=== PATIENT | male | born 1965 | race Caucasian/White ===

== ENCOUNTER 2019-12-13 14:25 | Emergency (ER) ==
--- NOTE | 2019-12-13 15:52 | PSYCHOLOGICAL NOTE ---
Psych Note - Psych Note Date seen by psych provider: 12/13/19 Time seen by psych provider: 15:05 - Interaction with patient at 1505. Psych Note: Attending ED Nurse informed this clinician patient would be a psychiatric consult. She stated he presented for alcohol abuse. She stated he admitted to a history of alcohol abuse with an increase over the last 3 weeks. She stated he appeared depressed and when asked mentioned having gone through a divorce 3 years ago. Observed patient get out of bed and say he was leaving. This clinician explained who she was to get patient to talk and stay in the hospital. He had trouble finding his wallet. Attending Nurse came over and patient located his wallet underneath his bed on the floor. He had lost some change (quarter, dime) and a chicken tender on the bed which was given back to him. When he went to retrieve his wallet from under the bed this clinician saw a cell phone in his pocket (top part was hanging out, told him to be careful not to lose his phone). Observed patient with sweat beads on his forehead. He reported "i was just laying there sleeping, this is taking long, I just want to leave." Inquired if he drank today and he admitted "yes." He reported he drinks beer. He admitted to "severe depression." He denied thoughts of wanting to hurt/harm/kill self. When asked he stated "no." Informed him about [facility] next door as voluntary inpatient, how they could help with alcohol detoxification and depression. He stated "you could walk me over?" He was made aware this clinician would call to make sure there was a bed, if so get it reserved, and depending in his alcohol level yes could walk him fdc where the facility staff would meet him. Then he said he was just going to leave "it is taking too long." When informed he seemed pretty intoxicated and we'd want his alcohol level to d ecrease or have an adult pick him up he stated "I can call a cab." Asked if he had money for a cab and he said "yes." Again tried to encourage him to at least wait for discharge paperwork and this clinician could link him to [facility]. Patient walked headed toward ambulance bay doors, was told that was not the correct way out, to wait for discharge papers at least, and patient proceeded to walk out to the main lobby through the doors. Patient was documented to have left without being seen at 1515. Attending ED Nurse, Charge Nurse, and Attending ED Provider all aware. Clinical Presentation: Alcohol Intoxication with Use Disorder Severe Impression/Plan: This clinician was trying to meet patient and encourage linkage to [facility]. He walked out of the emergency room through the emergency department lobby doors. Dr. Cordero consulted regarding the management and care of patient.
== END 2019-12-13 15:15 | disposition left against medical advice (07) ==
LOC: ER 14:25
DX: F10.129 Alcohol abuse with intoxication, unspecified (principal); F32.9 Major depressive disorder, single episode, unspecified; Z53.20 Procedure and treatment not carried out because of patient's decision for unspecified reasons

== ENCOUNTER 2019-12-31 14:08 | Emergency (ER) | payer SELFPAY ==
[2019-12-31 15:05] LABS: ABSOLUTE LYMPHOCYTES (AUTO) 0.9 10^3/uL (0.5-4.7); ABSOLUTE MONOCYTES (AUTO) 0.5 10^3/uL (0.1-1.4); ABSOLUTE NEUT (AUTO) 3.6 10^3/uL (1.7-8.2); BASOPHILS % (AUTO) 0.3 % (0-2); EOSINOPHILS % (AUTO) 0.1 % (0-6); HEMATOCRIT 47.7 % (37.9-51.0); HEMOGLOBIN 16.9 g/dL (13.5-17.0); LYMPHOCYTES % (AUTO) 17.8 % (13-45); MEAN CORPUSCULAR HEMOGLOBIN 34.3 pg (27.0-33.4); MEAN CORPUSCULAR HGB CONC 35.3 g/dL (32.0-36.0); MEAN CORPUSCULAR VOLUME 97 fl (80-97); MONOCYTES % (AUTO) 9.1 % (3-13); PLATELET COUNT 121 10^3/uL (150-450); RED BLOOD COUNT 4.92 10^6/uL (4.35-5.55); RED CELL DISTRIBUTION WIDTH 15.5 % (11.5-14.0); SEGMENTED NEUTROPHILS % (AUTO) 72.7 % (42-78); TOTAL CELLS COUNTED % (AUTO) 100 %
[2019-12-31 15:29] LABS: ALBUMIN 4.1 g/dL (3.5-5.0); ALKALINE PHOSPHATASE 115 U/L (38-126); ANION GAP 15 (5-19); ASPARTATE AMINO TRANSFERASE 256 U/L (17-59); BILIRUBIN,DIRECT 0.2 mg/dL (0.0-0.4); BILIRUBIN,TOTAL 0.6 mg/dL (0.2-1.3); BLOOD UREA NITROGEN 6 mg/dL (7-20); CALCIUM 8.6 mg/dL (8.4-10.2); CARBON DIOXIDE 21 mmol/L (22-30); CHLORIDE 89 mmol/L (98-107); CREATINE KINASE 885 U/L (55-170); GLUCOSE 144 mg/dL (75-110); POTASSIUM 4.3 mmol/L (3.6-5.0); TOTAL PROTEIN 7.4 g/dL (6.3-8.2)
[2019-12-31] MEDS ORDERED: NICOTINE 21 MG/24 HR PATCH.TD24 TD ONE (15:30)
--- NOTE | 2019-12-31 15:38 | ER Document Report ---
ED General <BEENA CLARK - Last Filed: 12/31/19 18:30> <PAPITO STEWART - Last Filed: 12/31/19 18:51> <TATO FOX - Last Filed: 12/31/19 22:30> - General Chief Complaint: ETOH Abuse Stated Complaint: WEAKNESS Time Seen by Provider: 12/31/19 14:39 Primary Care Provider: [facility] [Outside] - Follow up as needed [facility] [Outside] - Follow up as needed [facility] [Outside] - Follow up as needed - [facility] Notes: Chief complaint: "I am an alcoholic and I need help" History of present illness: 54-year-old male presenting via EMS requesting alcohol detox. 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 He lives alone. He says he has been vomiting today and feels weak and was afraid he would without further attention and this was his reason for calling EMS. He denies pain at this time. He says he feels anxious intermittently. He denies hallucinations. His last consumption of beer was less than an hour prior to calling EMS. He says he is vomited twice today. He denies vomiting blood or coffee-ground material. Patient denies any suicidal/homicidal ideation. He denies any use of illicit drugs. He does smoke in excess of pack cigarettes per day. Patient reports he has been treated in inpatient detox facility twice previously. Patient is on no long-term medications. He has no known allergies. Patient has had prior knee surgery and no other major surgery. Patient has a history of hepatitis C but is never been treated for this. Patient denies any history of service. He is currently living alone. (BEENA CLARK) - Related Data Allergies/Adverse Reactions: No Known Allergies Allergy (Verified 12/13/19 14:53) Past Medical History - General Information source: Patient, Emergency Med Personnel - Social History Smoking Status: Current Every Day Smoker Chew tobacco use (# tins/day): No Frequency of alcohol use: Heavy Drug Abuse: None Occupation: Unemployed manager of construction Lives with: Alone Family History: Reviewed & Not Pertinent Patient has suicidal ideation: No Patient has homicidal ideation: No - Past Medical History Cardiac Medical History: Reports: None Pulmonary Medical History: Reports: None Neurological Medical History: Reports: Hx Seizures Endocrine Medical History: Denies: Hx Diabetes Mellitus Type 1, Hx Diabetes Mellitus Type 2 Renal/ Medical History: Reports: None Malignancy Medical History: Reports None GI Medical History: Reports: Hx Hepatitis - Hepatitis C Past Surgical History: Reports: Hx Orthopedic Surgery - right knee <BEENA CLARK - Last Filed: 12/31/19 18:30> Review of Systems <CLARKBEENA Johnna - Last Filed: 12/31/19 18:30> - Review of Systems Notes: Constitutional: Negative for fever. HENT: Negative for sore throat. Eyes: Negative for visual changes. Cardiovascular: Negative for chest pain. Respiratory: Negative for shortness of breath. Gastrointestinal: As per HPI. Genitourinary: Negative for dysuria. Musculoskeletal: Negative for back pain. Skin: Negative for rash. Neurological: Dull headache. No focal weakness or numbness. 10 point ROS negative except as marked above and in HPI. (BEENA CLARK) Physical Exam <CLARKBEENA Oropeza - Last Filed: 12/31/19 18:30> - Vital signs Vitals: Resp Pulse Ox 11 L 94 12/31/19 14:24 12/31/19 14:24 - Notes Notes: GENERAL: Middle-age male who appears extremely intoxicated with strong odor of alcohol. SKIN: Good turgor no rashes. HEAD: Normocephalic atraumatic. EYES: PERRLA. EOMI. Conjunctivae bilaterally injected. Sclerae clear. EARS: CANALS AND TMS CLEAR. NOSE: CLEAR. MOUTH: Moist mucosa. Fair dentition. No stridor or edema. No drooling. NECK: Supple. No masses or thyromegaly. No adenopathy. Carotids 2+ without bruits. No JVD. BACK: Symmetrical without tenderness. CHEST: Respirations unlabored. Scattered coarse rhonchi bilaterally. HEART: Tachycardic regular rhythm. No murmur gallop or rub. ABDOMEN: Soft nontender without masses, organomegaly or rebound. Bowel sounds normally active. No bruits. GENITALIA: Deferred. EXTREMITIES: No edema. No calf tenderness. Cap refill less than 1.5 seconds. Dorsalis pedis and posterior tibial pulses 3+ and symmetrical. NEUROLOGICAL: GCS 13. Eyes are closed and he will open knees on verbal commands. He is oriented to place and person but not to date. Alert and oriented x3. Unable to stand without assistance. No tremor. Very slurred speech. Cranial nerves II through XII intact. No gross sensory or motor deficit. Moves all 4 extremities symmetrically. PSYCHIATRIC: Appropriate affect. (BEENA CLARK) Course - Laboratory Result Diagrams: 12/31/19 14:25 12/31/19 14:25 <BEENA CLARK - Last Filed: 12/31/19 18:30> - Laboratory Result Diagrams: 12/31/19 14:25 12/31/19 14:25 <PAPITO STEWART - Last Filed: 12/31/19 18:51> - Laboratory Result Diagrams: 12/31/19 14:25 12/31/19 20:27 <TATO FOX - Last Filed: 12/31/19 22:30> - Re-evaluation Re-evalutation: 12/31/19 15:43 Patient is highly intoxicated this time with a blood alcohol 275. I am giving him an IV banana bag. After he myriam clinically we will ask the behavioral medicine team to see him regarding detox. (BEENA CLARK) 12/31/19 21:14 I received this pt at turnover from Dr. Clark. He is here with acute etoh intoxication and low Na and mildly elevated CK. He was receiving a banana bag and then having a recheck of electrolytes and ck. CK is down a bit and Na is up a bit. PT seen. He is mildly tachy and just a bit tremulous. He is interested in going [facility]. I feel clinically he is stable for that. Will recheck Etoh to verify etoh is at acceptable level. (TATO FOX) - Vital Signs Vital signs: Temp Pulse Resp BP Pulse Ox 98.6 F 110 H 20 137/97 H 96 12/31/19 14:32 12/31/19 14:32 12/31/19 17:01 12/31/19 17:01 12/31/19 17:01 - Laboratory Laboratory results interpreted by me: 12/31/19 12/31/19 12/31/19 14:25 14:25 14:25 MCH 34.3 H RDW 15.5 H Plt Count 121 L Sodium 125.0 L Chloride 89 L Carbon Dioxide 21 L BUN 6 L Glucose 144 H Calcium AST 256 H ALT 278 H Creatine Kinase 885 H CK-MB (CK-2) 6.50 H Urine Protein Urine Blood 12/31/19 12/31/19 16:29 20:27 MCH RDW Plt Count Sodium 129.0 L Chloride 95 L Carbon Dioxide BUN 6 L Glucose Calcium 8.1 L AST ALT Creatine Kinase 793 H CK-MB (CK-2) Urine Protein 100 H Urine Blood MODERATE H - EKG Interpretation by Me Additional EKG results interpreted by me: 12/31/19 15:43 Twelve-lead EKG reviewed by me contemporaneously: 1451 hrs. Indication for study: Tachycardia Rhythm: Sinus tachycardia Rate: 97 Intervals: Normal QRS axis: Normal +[address]/T wave changes: None Comparison with prior tracing: None Interpretation: Normal tracing (BEENA CLARK) Discharge <BEENA CLARK - Last Filed: 12/31/19 18:30> <PAPITO STEWART - Last Filed: 12/31/19 18:51> <TATO FOX - Last Filed: 12/31/19 22:30> - Discharge Clinical Impression: Alcohol abuse, Hyponatremia Condition: Fair Disposition: HOME, SELF-CARE Additional Instructions: You have been evaluated by both medical and behavioral health teams for alcohol use, intoxication. You have been deemed appropriate for discharge. While in the emergency department you received the following services/or had access to: Medical screening and assessment, nursing services, dietary services, pharmacological services, one-on-one counseling and/or psychotherapy, [facility], and continuous observation by a patient safety physician. You are not currently involved with any medication management providers. Alcohol Withdrawal Your symptoms are caused by alcohol withdrawal. After a period of frequent drinking, the brain and body are changed by the alcohol. When you quit or reduce your drinking, the nervous system becomes unstable. Withdrawal symptoms can start a few hours after your last drink, but sometimes don't begin until a couple of days later. Symptoms can include shakiness, sweating, insomnia, nausea, vomiting, fearfulness, hallucinations, and seizures. In addition to the acute effects of alcohol withdrawal, we often have to deal with the medical effects of alcoholism. These problems often include dehydration, stomach irritation, intestinal bleeding, low blood sugar, liver disease, and pancreas inflammation. Treatment for alcohol withdrawal includes mild sedatives, vitamins, and fluids. You need to be with someone who can help if symptoms become severe. Many patients can withdraw at home. Admission to the hospital or a detox facility may be necessary if withdrawal symptoms are severe and uncontrollable. Abstaining from alcohol is the only effective long-term treatment. If you start drinking again, you will not be able to control yourself after the first drink. Treatment programs are available. In addition, many alcoholics benefit from Alcoholics Anonymous or other support groups available through your counselor or methodist neck band operator. AL-ANON and ALA-TEEN are support groups for friends and family members of an alcoholic. Go to the emergency room if you develop persistent vomiting, severe abdo rosemarie pain, fever, shortness of breath, hallucinations, uncontrollable tremors, or seizures. Follow Up Care: You are not currently involved in outpatient care or any type of AA meetings. You are recommended to begin attending AA meetings as an additional support for sobriety. You are recommended to follow up with [facility], voluntarily, and get the alcohol use treatment needed. You have been given a community outpatient referral list to include phone numbers for [facility] and [facility] mobile crisis. If you experience worsening or a significant change in your symptoms, notify the physician immediately, utilize mobile crisis, or return to the Emergency Department at any time for re-evaluation. Dr. Cordero was consulted to care management of this patient; attending physicians in agreement with recommendations and disposition. Referrals: [facility] [Outside] - Follow up as needed [facility] [Outside] - Follow up as needed [facility] [Outside] - Follow up as needed
[2019-12-31 15:45] LABS: TROPONIN I < 0.012 ng/mL
--- NOTE | 2019-12-31 15:48 | RADIOLOGY REPORT (SQ) ---
EXAM DESCRIPTION: CHEST SINGLE VIEW IMAGES COMPLETED DATE/TIME: 12/31/2019 3:39 pm REASON FOR STUDY: cough COMPARISON: None. EXAM PARAMETERS: NUMBER OF VIEWS: One view. TECHNIQUE: Single frontal radiographic view of the chest acquired. RADIATION DOSE: NA LIMITATIONS: None. FINDINGS: LUNGS AND PLEURA: No opacities, masses or pneumothorax. No pleural effusion. MEDIASTINUM AND HILAR STRUCTURES: No masses. Contour normal. HEART AND VASCULAR STRUCTURES: Heart normal in size. Normal vasculature. BONES: No acute findings. HARDWARE: None in the chest. OTHER: No other significant finding. IMPRESSION: No focal consolidation or other evidence of acute intrathoracic process. TECHNICAL DOCUMENTATION: JOB ID: [id number] 2010 [employer]- All Rights Reserved Reading location - IP/workstation name: [email or web address]
[2019-12-31 16:56] LABS: APPEARANCE,URINE CLEAR; BILIRUBIN,URINE NEGATIVE (NEGATIVE); COLOR,URINE YELLOW; GLUCOSE, URINE NEGATIVE (NEGATIVE); KETONES,URINE NEGATIVE (NEGATIVE); LEUKOCYTE ESTERASE,URINE NEGATIVE (NEGATIVE); NITRITE,URINE NEGATIVE (NEGATIVE); PROTEIN,URINE 100 mg/dL (NEGATIVE); URINE SPECIFIC GRAVITY 1.005; UROBILINOGEN,URINE NEGATIVE mg/dL (<2.0)
[2019-12-31] MEDS ORDERED: LORAZEPAM INJ 2 MG/1 ML VIAL IV ONE ×2 (17:45→21:19)
[2019-12-31] MEDS ORDERED: NORMAL SALINE 1000 ML 1,000 ML with POTASSIUM CHLORIDE 20 MEQ, MAGNESIUM SULFATE 8 MEQ,... IV SCH ×5 (18:00)
--- NOTE | 2019-12-31 18:09 | PSYCHOLOGICAL NOTE ---
Psych Note - Psych Note Date seen by psych provider: 12/31/19 Time seen by psych provider: 16:30 Psych Note: [id number] Reason for Consult: alcohol abuse; intoxication Patient is a 54 year old male who presented to the [facility] ED today via EMS. Patient was seen earlier in December by behavioral health and left the ED prior to being discharged. Patient today reports drinking 12-18 beers a day and states he has not been eating in the past 5 weeks. He reports when he consumes alcohol, he does not feel like eating food. Patients alcohol level was 275 when he was admitted. Patient lives alone (but has two kids that are involved in his life) and reports he recently lost his job due to being frustrated with changes happening within and states he basically quit. Patient has been experiencing physical symptoms to include vomiting and feeling weak and states he called EMS in fear of dying. Patient reports prior to losing his job, he was sober for 1.5 years. Patient denies suicidal ideation, plan, and intent. He also denies homicidal ideation. Patient reports he went to a [facility] rehab facility in [place] about 2 years ago and has not been to an AA meeting in over 6 months. Patient denies history of inpatient hospitalizations and suicide attempts. Patient gave verbal consent to contact [facility] about a voluntary bed and reports wanting to get help and get sober. Patient was alert and oriented to self, person, place, time and situation. Mood was anxious and intoxicated with congruent affect. He denied current suicidal ideation, plan, and intent. He also denied homicidal ideation. Patient did not appear to be responding to internal stimuli as evidenced by fair eye contact and answering questions appropriately when addressed. Thought processes are linear and organized. Conversational speech was within normal limits for rate, tone and prosody. Intellectual abilities are estimated to be average. Insight and judgment are poor as evidenced by drinking excessive amounts of alcohol and not eating adequately, but impulse control was fair evidenced by calling EMS in order to get the help he needs. Patient demonstrated future forward goal oriented thinking as he mentions wanting to detox and get sober. Clinical Presentation: alcohol use, intoxicated IVC Criteria per [place] GS 122C Dangerous to others Within the relevant past the individual No has inflicted or attempted to inflict or threatened to inflict serious bodily harm on another AND No that there is a reasonable probability that this conduct will be repeated. OR No has acted in such a way as to create a substantial risk of serious bodily harm to another AND No that there is a reasonable probability that this conduct will be repeated. OR No has engaged in extreme destruction of property AND NO that there is a reasonable probability that this conduct will be repeated. Previous episodes of dangerousness to others, when applicable, may be considered when determining reasonable probability of future dangerous conduct. Clear, cogent, and convincing evidence that an individual has committed a homicide in the relevant past is prima facie evidence of dangerousness to others. Dangerous to self Within the relevant past the individual has done any of the following: acted in such a way as to show ALL of the following: No The individual would be unable without care, supervision, and the continued assistance of others not otherwise available, to exercise self- control, judgment, and discretion in the conduct of the individual's daily responsibilities and social relations or to satisfy the individual's need for nourishment, personal or medical care, assisted, or self-protection and safety. AND No There is a reasonable probability of the individual suffering serious physical debilitation within the near future unless adequate treatment is given. A showing of behavior that is grossly irrational, of actions that the individual is unable to control, of behavior that is grossly inappropriate to the situation, or of other evidence of severely impaired insight and judgment shall create a prima facie inference that the individual is unable to care for himself or herself. OR No has attempted suicide or threatened suicide AND No that there is a reasonable probability of suicide unless adequate treatment is given OR No has mutilated himself or herself or attempted to mutilate himself or herself AND No that there is a reasonable probability of serious self-mutilation unless adequate treatment is given. NOTE: Previous episodes of dangerousness to self, when applicable, may be considered when determining reasonable probability of physical debilitation, suicide, or self-mutilation. Medication recommendations per [facility] contracted psychiatrist, Dr. William CANDELAIRO, are as follows: Impression\plan: Patient is cleared from acute psychiatric services. [facility] was contacted on behalf of patient, and at this time a male voluntary bed is available. Patient was provided the contact information for [facility] and was inf ormed he needs to make the phone call himself as a voluntary admission. Patient was woken up and provided the information needed and information was left on his table next to his cell phone. Nurse was also made aware of him calling on his own behalf to schedule a bed hold and will assist with making phone call if needed. Patient was admitted to the ED for physical concerns regarding his alcohol use. He denies suicidal ideation, plan, and intent. Patient has no psychiatric history, but does have a history of alcoholism. He was sober for 1.5 years and after losing/quitting his job, started drinking beer heavily. He came into the ED due to these side effects of drinking heavily and in fear of dying. He does not meet criteria for IVC. Patient has been given referrals for detox facilities in the area and the phone numbers to mobile crisis for [facility] and [facility]. [facility] has been contacted and a voluntary is available (at this time) however patient has to request hold on his own. He is aware of this. Patient is recommended to get involved again with AA and follow up with outpatient provider to assist with sobriety. He is recommended to stop drinking as most of his physical complaints came about after his excessive drinking this time. Dr. Cordero was consulted to care management of this patient; attending physicians in agreement with recommendations and disposition. Doctor's Discharge - Discharge Clinical Impression: Alcohol abuse, Hyponatremia Condition: Fair Disposition: HOME, SELF-CARE Additional Instructions: You have been evaluated by both medical and behavioral health teams for alcohol use, intoxication. You have been deemed appropriate for discharge. While in the emergency department you received the following services/or had access to: Medical screening and assessment, nursing services, dietary services, pharmacological services, one-on-one counseling and/or psychotherapy, environmental services, and continuous observation by a patient analysis or research safety inspector. You are not currently involved with any medication management providers. Alcohol Withdrawal Your symptoms are caused by alcohol withdrawal. After a period of frequent drinking, the brain and body are changed by the alcohol. When you quit or reduce your drinking, the nervous system becomes unstable. Withdrawal symptoms can start a few hours after your last drink, but sometimes don't begin until a couple of days later. Symptoms can include shakiness, sweating, insomnia, nausea, vomiting, fearfulness, hallucinations, and seizures. In addition to the acute effects of alcohol withdrawal, we often have to deal with the medical effects of alcoholism. These problems often include dehydration, stomach irritation, intestinal bleeding, low blood sugar, liver disease, and pancreas inflammation. Treatment for alcohol withdrawal includes mild sedatives, vitamins, and fluids. You need to be with someone who can help if symptoms become severe. Many patients can withdraw at home. Admission to the hospital or a detox facility may be necessary if withdrawal symptoms are severe and uncontrollable. Abstaining from alcohol is the only effective long-term treatment. If you start drinking again, you will not be able to control yourself after the first drink. Treatment programs are available. In addition, many alcoholics benefit from Alcoholics Anonymous or other support groups available through your counselor or mu-ism web applications programmer. AL-ANON and ALA-TEEN are support groups for friends and family members of an alcoholic. Go to the emergency room if you develop persistent vomiting, severe abdominal pain, fever, shortness of breath, hallucinations, uncontrollable tremors, or seizures. Follow Up Care: You are not currently involved in outpatient care or any type of AA meetings. You are recommended to begin attending AA meetings as an additional support for sobriety. You are recommended to follow up with [facility], voluntarily, and get the alcohol use treatment needed. You have been given [facility] to include phone numbers for [facility] and [facility] mobile crisis. If you experience worsening or a significant change in your symptoms, notify the physician immediately, utilize mobile crisis, or return to the Emergency Department at any time for re-evaluation. Dr. Cordero was consulted to care management of this patient; attending physicians in agreement with recommendations and disposition. Referrals: [facility] [Outside] - Follow up as needed [facility] [Outside] - Follow up as needed [facility] [Outside] - Follow up as needed
[2019-12-31 18:44] LABS: URINE AMPHETAMINES SCREEN NEGATIVE; URINE BARBITURATES SCREEN NEGATIVE; URINE BENZODIAZEPINES SCREEN NEGATIVE; URINE COCAINE SCREEN NEGATIVE; URINE MARIJUANA (THC) SCREEN NEGATIVE; URINE METHADONE SCREEN NEGATIVE; URINE PHENCYCLIDINE SCREEN NEGATIVE
--- NOTE | 2019-12-31 19:42 | EKG REPORT ---
SEVERITY:- BORDERLINE ECG - SINUS RHYTHM PROBABLE LEFT ATRIAL ABNORMALITY : Confirmed by: Theo Duggan MD 31-Dec-2019 19:41:22
[2019-12-31 20:53] LABS: ANION GAP 11 (5-19); BLOOD UREA NITROGEN 6 mg/dL (7-20); CALCIUM 8.1 mg/dL (8.4-10.2); CARBON DIOXIDE 23 mmol/L (22-30); CHLORIDE 95 mmol/L (98-107); CREATINE KINASE 793 U/L (55-170); GLUCOSE 83 mg/dL (75-110); POTASSIUM 4.5 mmol/L (3.6-5.0)
[2020-01-01 00:03] VITALS: BP 139/89
--- NOTE | 2020-01-02 10:42 | PSYCHOLOGICAL NOTE ---
Psych Note - Psych Note Date seen by psych provider: 01/02/20 Psych Note: Patient was seen 12/31/2019 (please seen note in previous vist) and was assisted with voluntary placement at [facility]; unfortunately, the patient presented again to [facility] less than 2 hours later after discharge due to [facility] being unable to assist the patient due to sodium levels. At this time, the patient appears to need medical assistance with detox (as he has been admitted medically), this is not something [facility] can assist with. Once the patient is detoxed, he is recommended to follow through with original recommendations for post detox and obtain substance abuse treatment (ie rehab, intense outpatient or outpatient services).
== END 2019-12-31 23:57 | disposition home or self-care (01) ==
LOC: ER 14:08
DX: F10.10 Alcohol abuse, uncomplicated (principal); E87.1 Hypo-osmolality and hyponatremia; R00.0 Tachycardia, unspecified; R74.01 Elevation of levels of liver transaminase levels; R53.1 Weakness; R11.10 Vomiting, unspecified; F41.9 Anxiety disorder, unspecified; R51.9 Headache, unspecified; F17.210 Nicotine dependence, cigarettes, uncomplicated
CPT/HCPCS: 93005; 96376; 99285; 96375; 96365; 96366; 36415; 82553; 80307 ×2; 82550; 85025; 80053; 81001; 84484; 71045; 93010; J3475; J2060; J3480; J3411; J7030; J3490

== ENCOUNTER 2020-01-01 01:17 | Inpatient (IN) | payer SELFPAY ==
[2020-01-01] MEDS ORDERED: LORAZEPAM INJ 2 MG/1 ML VIAL IV ONE (02:47)
--- NOTE | 2020-01-01 02:51 | ER Document Report ---
ED General - General Chief Complaint: Alcohol Withdrawl Stated Complaint: ETOH Time Seen by Provider: 01/01/20 02:43 Notes: Patient is a 54-year-old male that comes emergency department for chief complaint of alcohol withdrawals. Patient was here at this facility during the afternoon and evening, had medical clearance for detox, and he was discharged to [facility], however patient started having significant withdrawal symptoms and was sent back over to the emergency department. Patient is diaphoretic, tremulous. Patient denies having history of seizures with alcohol withdrawals. Patient states he drinks 24 beers a day. Patient denies vomiting, fever, chest pain. Patient states he has had a cough ever since he stopped smoking recently. He states he has had "seizure from a prescription medication but nothing since I stopped it". He could not tolerate the medication. He denies medical history otherwise. - Related Data Allergies/Adverse Reactions: No Known Allergies Allergy (Verified 12/13/19 14:53) Past Medical History - General Information source: Patient - Social History Smoking Status: Current Every Day Smoker Frequency of alcohol use: Heavy Drug Abuse: None Lives with: Family Family History: Reviewed & Not Pertinent Patient has homicidal ideation: No Neurological Medical History: Reports: Hx Seizures Endocrine Medical History: Denies: Hx Diabetes Mellitus Type 1, Hx Diabetes Clari litus Type 2 GI Medical History: Reports: Hx Hepatitis - Hepatitis C Infectious Medical History: Reports: Hx Hepatitis - Hepatitis C Past Surgical History: Reports: Hx Orthopedic Surgery - right knee Review of Systems - Review of Systems Constitutional: See HPI EENT: No symptoms reported Cardiovascular: No symptoms reported Respiratory: No symptoms reported Gastrointestinal: No symptoms reported Genitourinary: No symptoms reported Male Genitourinary: No symptoms reported Musculoskeletal: No symptoms reported Skin: No symptoms reported Hematologic/Lymphatic: No symptoms reported Neurological/Psychological: See HPI Physical Exam - Vital signs Vitals: Temp Pulse Resp BP Pulse Ox 98.0 F 123 H 22 H 128/86 H 96 01/01/20 01:27 01/01/20 01:27 01/01/20 01:27 01/01/20 01:27 01/01/20 01:27 - Notes Notes: GENERAL: Patient is alert and interactive however he is ill-appearing, flushed, diaphoretic, tremulous HEAD: Normocephalic, atraumatic. EYES: Pupils equal, round, and reactive to light. Extraocular movements intact. ENT: Oral mucosa moist, tongue midline. Oropharynx unremarkable. Airway patent. NECK: Full range of motion. Supple. Trachea midline. No lymphadenopathy. LUNGS: Decreased breath sounds bilaterally with a few scattered wheezes but no rales or rhonchi. No respiratory distress. Nontender chest wall. HEART: Tachycardia, normal rhythm, no murmur ABDOMEN: Soft, non-tender. Non-distended. EXTREMITIES: Moves all 4 extremities spontaneously. No edema, normal radial and dorsalis pedis pulses bilaterally. No cyanosis. BACK: no cervical, thoracic, lumbar midline tenderness. No saddle anesthesia, normal distal neurovascular exam. Moves all extremities in full range of motion. NEUROLOGICAL: Alert and oriented x3. Normal speech. Cranial nerves II through XII grossly intact. Strength 5/5 in all extremities. PSYCH: Slightly restless but cooperative SKIN: Diaphoretic with obvious beads of sweat on the forehead Course - Re-evaluation Re-evalutation: 01/01/20 02:52 On my evaluation patient is diaphoretic, very tremulous, tachycardic in the 120s. 01/01/20 03:32 Patient reevaluated. Heart rate is 103, patient sleeping, maintaining his airway, significantly improved after the 2 mg of Ativan IV. 01/01/20 04:50 Laboratory work-up without significant change from prior except alcohol level is essentially 0 now. Patient initially had some improvement with Ativan but this was very brief and patient quickly became diaphoretic, tremulous, and agitated. Patient will be given Valium. Because of his repeated need for IV benzodiazepines patient will require admission for alcohol withdrawal. 01/01/[address] Lopez, patient accepted to [facility] full admission. Patient states agreement with plan. - Vital Signs Vital signs: Temp Pulse Resp BP Pulse Ox 99.6 F 123 H 24 H 125/85 97 01/01/20 07:00 01/01/20 01:27 01/01/20 07:00 01/01/20 07:00 01/01/20 07:00 - Laboratory Result Diagrams: 01/01/20 02:45 01/01/20 02:45 Laboratory results interpreted by me: 01/01/20 01/01/20 02:45 02:45 MCV 98 H MCH 33.5 H RDW 15.8 H Plt Count 138 L Lymph % (Auto) 12.5 L Seg Neutrophils % 78.5 H Sodium 126.6 L Chloride 94 L Carbon Dioxide 21 L Glucose 214 H AST 186 H ALT 236 H Discharge - Discharge Clinical Impression: Diaphoresis, Tachycardia Alcohol withdrawal Qualifiers: Complication of substance-induced condition: with unspecified complication Qualified Code(s): F10.239 - Alcohol dependence with withdrawal, unspecified Condition: Fair Disposition: ADMITTED INPATIENT Admitting Provider: Jessica (Hospitalist) Unit Admitted: [facility]
[2020-01-01 04:28] LABS: ABSOLUTE LYMPHOCYTES (AUTO) 0.8 10^3/uL (0.5-4.7); ABSOLUTE MONOCYTES (AUTO) 0.6 10^3/uL (0.1-1.4); BASOPHILS % (AUTO) 0.2 % (0-2); EOSINOPHILS % (AUTO) 0.1 % (0-6); HEMATOCRIT 45.7 % (37.9-51.0); HEMOGLOBIN 15.6 g/dL (13.5-17.0); LYMPHOCYTES % (AUTO) 12.5 % (13-45); MEAN CORPUSCULAR HEMOGLOBIN 33.5 pg (27.0-33.4); MEAN CORPUSCULAR HGB CONC 34.1 g/dL (32.0-36.0); MEAN CORPUSCULAR VOLUME 98 fl (80-97); MONOCYTES % (AUTO) 8.7 % (3-13); PLATELET COUNT 138 10^3/uL (150-450); RED BLOOD COUNT 4.65 10^6/uL (4.35-5.55); RED CELL DISTRIBUTION WIDTH 15.8 % (11.5-14.0); SEGMENTED NEUTROPHILS % (AUTO) 78.5 % (42-78); TOTAL CELLS COUNTED % (AUTO) 100 %; WHITE BLOOD COUNT 6.4 10^3/uL (4.0-10.5)
[2020-01-01 04:37] LABS: ALCOHOL 12 mg/dL (NONE DETECTED); ALKALINE PHOSPHATASE 104 U/L (38-126); ANION GAP 12 (5-19); ASPARTATE AMINO TRANSFERASE 186 U/L (17-59); BILIRUBIN,DIRECT 0.4 mg/dL (0.0-0.4); BLOOD UREA NITROGEN 9 mg/dL (7-20); CALCIUM 8.6 mg/dL (8.4-10.2); CARBON DIOXIDE 21 mmol/L (22-30); CHLORIDE 94 mmol/L (98-107); GLUCOSE 214 mg/dL (75-110); POTASSIUM 4.4 mmol/L (3.6-5.0); TOTAL PROTEIN 7.1 g/dL (6.3-8.2)
[2020-01-01] MEDS ORDERED: DIAZEPAM INJ 10 MG/2 ML DISP.SYRIN IV ONE ×2 (04:50→05:54)
[2020-01-01] MEDS ORDERED: THIAMINE HCL 100 MG in NORMAL SALINE 50 ML IV ONE (04:51)
[2020-01-01] MEDS ORDERED: THIAMINE HCL INJ 200 MG/2 ML VIAL ONE ×3 (06:06→19:02)
[2020-01-01] MEDS ORDERED: ONDANSETRON HCL INJ/PF 4 MG/2 ML SDV IV PRN (06:28)
[2020-01-01] MEDS ORDERED: MAG HYDROX/AL HYDROX/SIMETH SUSP 30 ML UDCUP PO PRN (06:28)
[2020-01-01] MEDS ORDERED: ALBUTEROL SULFATE 0.083% NEB 2.5 MG/3 ML AMPUL NEB PRN (06:28)
[2020-01-01] MEDS ORDERED: NORMAL SALINE 1000 ML 1,000 ML IV ONE (06:40)
[2020-01-01] MEDS ORDERED: DEXTROSE 40% GEL 15 GM TUBE PO PRN ×2 (06:45)
[2020-01-01] MEDS ORDERED: GLUCAGON,HUMAN RECOMB 1 MG INJ IM PRN (06:45)
[2020-01-01] MEDS ORDERED: DEXTROSE 50%-WATER 25 GM/50 ML DISP.SYRIN IV PRN ×2 (06:45)
--- NOTE | 2020-01-01 06:51 | PDOC H&P ---
History of Present Illness Admission Date/PCP: 01/01/20 05:57 Patient complains of: Detox History of Present Illness: ALINA DORSEY is a 54 year old male with history of alcohol abuse, hepatitis C infection, who presents to the hospital for alcohol detox. He states he wants to turn his life around. He is currently experiencing symptoms of alcohol withdrawal including tremulousness, nausea, diaphoresis. He states he was sent to a detox center and he was turned back because he was too far into his withdrawal. He drinks 24 beers and some liquor every day. Last alcohol consumption was yesterday. Denies fever or chills at this time. Denies any sick exposures. In the ER, his CIWA was reported to be 14. He currently denies any hallucinations. He has had seizure in the past but says it was not from alcohol withdrawal. Denies having any other medical conditions besides hepatitis C and alcohol use. Past Medical History Neurological Medical History: Reports: Seizures Endocrine Medical History: Denies: Diabetes Mellitus Type 1, Diabetes Mellitus Type 2 GI Medical History: Reports: Hepatitis - Hepatitis C Past Surgical History Past Surgical History: Reports: Orthopedic Surgery - right knee Social History Smoking Status: Current Every Day Smoker Frequency of Alcohol Use: Heavy Hx Recreational Drug Use: No - Advance Directive Resuscitation Status: Full Code Family History Family History: None Parental Family History Reviewed: Yes Children Family History Reviewed: Yes Sibling(s) Family History Reviewed.: Yes Medication/Allergy Allergies/Adverse Reactions: No Known Allergies Allergy (Verified 12/13/19 14:53) Review of Systems Constitutional: PRESENT: fatigue. ABSENT: chills, fever(s) Eyes: ABSENT: visual disturbances Ears: ABSENT: hearing changes Nose, Mouth, and Throat: PRESENT: headache(s) Cardiovascular: ABSENT: chest pain Respiratory: ABSENT: cough, dyspnea Gastrointestinal: PRESENT: abdominal pain, nausea, vomiting Genitourinary: ABSENT: dysuria Musculoskeletal: ABSENT: back pain Integumentary: PRESENT: diaphoresis Neurological: PRESENT: lack of coordination. ABSENT: dizziness Psychiatric: PRESENT: anxiety. ABSENT: hallucinations Endocrine: PRESENT: flushing. ABSENT: polyuria Hematologic/Lymphatic: ABSENT: easy bleeding Physical Exam Vital Signs: Temp Pulse Resp BP Pulse Ox 99.5 F 123 H 25 H 127/89 H 95 01/01/20 02:44 01/01/20 01:27 01/01/20 05:01 01/01/20 05:00 01/01/20 05:01 Intake & Output 12/30/19 12/31/19 01/01/20 06:59 06:59 06:59 Weight 95.4 kg General appearance: PRESENT: no acute distress, cooperative Head exam: PRESENT: normocephalic Eye exam: PRESENT: EOMI, nystagmus, PERRLA Neck exam: ABSENT: JVD Respiratory exam: PRESENT: symmetrical, unlabored, wheezes. ABSENT: crackles, rales, tachypnea Cardiovascular exam: PRESENT: +S1, +S2, tachycardia. ABSENT: irregular rhythm GI/Abdominal exam: PRESENT: soft. ABSENT: distended, firm, guarding, rebound, rigid, tenderness Extremities exam: ABSENT: calf tenderness Neurological exam: PRESENT: alert, awake, oriented to person, oriented to place, oriented to time, oriented to situation, ataxia. ABSENT: motor sensory deficit, aphasic Psychiatric exam: PRESENT: anxious, unusual affect. ABSENT: agitated Focused psych exam: PRESENT: restlessness. ABSENT: catatonic, delusional, internal stimuli, pressured speech Skin exam: ABSENT: jaundice Results Laboratory Results: 01/01/20 02:45 01/01/20 02:45 01/01/20 01/01/20 02:45 02:45 WBC 6.4 RBC 4.65 Hgb 15.6 Hct 45.7 MCV 98 H MCH 33.5 H MCHC 34.1 RDW 15.8 H Plt Count 138 L Seg Neutrophils % 78.5 H Sodium 126.6 L Potassium 4.4 Chloride 94 L Carbon Dioxide 21 L Anion Gap 12 BUN 9 Creatinine 0.75 Est GFR ( Amer) > 60 Glucose 214 H Calcium 8.6 Magnesium 2.1 Total Bilirubin 1.0 AST 186 H Alkaline Phosphatase 104 Total Protein 7.1 Albumin 4.0 Lipase 297.6 Assessment and Plan - Diagnosis (1) Alcohol dependence with withdrawal Qualifiers: Complication of substance-induced condition: with unspecified complication Qualified Code(s): F10.239 - Alcohol dependence with withdrawal, unspecified Is this a current diagnosis for this admission?: Yes Plan: Currently in significant withdrawal. CIWA protocol Ativan as needed Standing Valium. Psychiatric consultation Check UDS Antiemetics as needed GI prophylaxis (2) Wernickes encephalopathy Is this a current diagnosis for this admission?: Yes Plan: Currently ataxic with significant nystagmus We will start patient on high-dose IV thiamine twice a day (3) Hyponatremia Is this a current diagnosis for this admission?: Yes Plan: Sodium is 126. Likely secondary to poor caloric intake from alcoholism. Check urine sodium, osmolarity and serum osmolarity Normal saline infusion Repeat basic metabolic panel. Goal correction of 6-8 meq per 24-hour (4) Hyperglycemia Is this a current diagnosis for this admission?: Yes Plan: Blood sugar in the 200s. Denies history of diabetes. We will check an A1c and keep Accu-Cheks and sliding scale (5) Thrombocytopenia Is this a current diagnosis for this admission?: Yes Plan: Likely secondary to hepatitis C infection. Monitor. (6) History of hepatitis C Is this a current diagnosis for this admission?: Yes Plan: Follow-up with infectious disease or highway maintenance crew worker as outpatient. - Time Time Spent with patient: 35 or more minutes Anticipated Discharge Disposition: Psych Hospital/Unit Anticipated Discharge Timeframe: Unknown
[2020-01-01] MEDS: IPRATROPIUM/ALBUTEROL 0.5-2.5 MG/3 ML AMPUL NEB SCH ×3 (09:26→23:51)
[2020-01-01] MEDS: LORAZEPAM INJ 2 MG/1 ML VIAL IV PRN ×3 (10:07→23:23)
[2020-01-01] MEDS: THIAMINE HCL 500 MG in NORMAL SALINE 250 ML IV SCH ×2 (10:20→19:26)
[2020-01-01] MEDS: FAMOTIDINE INJ/PF 20 MG/2 ML SDV IV SCH ×2 (10:20→21:34)
[2020-01-01 11:05] LABS: ANION GAP 9 (5-19); BLOOD UREA NITROGEN 12 mg/dL (7-20); CALCIUM 8.3 mg/dL (8.4-10.2); CARBON DIOXIDE 22 mmol/L (22-30); CHLORIDE 98 mmol/L (98-107); GLUCOSE 111 mg/dL (75-110); POTASSIUM 4.1 mmol/L (3.6-5.0)
[2020-01-01] MEDS: INSULIN LISPRO 100 UNIT/ML 3 ML VIAL SUBCUT SCH ×4 (11:10→21:51)
[2020-01-01] MEDS: ENOXAPARIN SODIUM INJ 40 MG/0.4 ML DISP.SYRIN SUBCUT SCH (11:11)
[2020-01-01] MEDS: DIAZEPAM INJ 10 MG/2 ML DISP.SYRIN IV SCH ×2 (13:27→21:34)
[2020-01-01] MEDS: FOLIC ACID 1 MG TABLET PO SCH (16:03)
[2020-01-01] MEDS: NORMAL SALINE 1000 ML 1,000 ML IV PRN (21:35)
[2020-01-02] MEDS: LORAZEPAM INJ 2 MG/1 ML VIAL IV PRN ×4 (02:10→22:24)
[2020-01-02] MEDS: DIAZEPAM INJ 10 MG/2 ML DISP.SYRIN IV SCH ×3 (05:50→21:41)
[2020-01-02 07:16] LABS: ABSOLUTE EOSINOPHILS # (AUTO) 0.1 10^3/uL (0.0-0.6); ABSOLUTE LYMPHOCYTES (AUTO) 1.1 10^3/uL (0.5-4.7); ABSOLUTE MONOCYTES (AUTO) 0.6 10^3/uL (0.1-1.4); ABSOLUTE NEUT (AUTO) 3.4 10^3/uL (1.7-8.2); BASOPHILS % (AUTO) 0.3 % (0-2); EOSINOPHILS % (AUTO) 1.2 % (0-6); HEMATOCRIT 40.9 % (37.9-51.0); HEMOGLOBIN 14.1 g/dL (13.5-17.0); LYMPHOCYTES % (AUTO) 21.1 % (13-45); MEAN CORPUSCULAR HEMOGLOBIN 34.1 pg (27.0-33.4); MEAN CORPUSCULAR HGB CONC 34.4 g/dL (32.0-36.0); MEAN CORPUSCULAR VOLUME 99 fl (80-97); MONOCYTES % (AUTO) 11.1 % (3-13); PLATELET COUNT 104 10^3/uL (150-450); RED BLOOD COUNT 4.13 10^6/uL (4.35-5.55); SEGMENTED NEUTROPHILS % (AUTO) 66.3 % (42-78); TOTAL CELLS COUNTED % (AUTO) 100 %; WHITE BLOOD COUNT 5.2 10^3/uL (4.0-10.5)
[2020-01-02 07:38] LABS: ALBUMIN 3.3 g/dL (3.5-5.0); ALKALINE PHOSPHATASE 93 U/L (38-126); ANION GAP 6 (5-19); ASPARTATE AMINO TRANSFERASE 104 U/L (17-59); BILIRUBIN,DIRECT 0.2 mg/dL (0.0-0.4); BILIRUBIN,TOTAL 0.9 mg/dL (0.2-1.3); BLOOD UREA NITROGEN 13 mg/dL (7-20); CALCIUM 8.4 mg/dL (8.4-10.2); CARBON DIOXIDE 22 mmol/L (22-30); CHLORIDE 104 mmol/L (98-107); GLUCOSE 80 mg/dL (75-110); TOTAL PROTEIN 6.2 g/dL (6.3-8.2)
[2020-01-02] MEDS ORDERED: INFLUENZA QUAD (6MOS+) 2020-21 VAC 0.5 ML SYR IM ONE (08:00)
[2020-01-02] MEDS: INSULIN LISPRO 100 UNIT/ML 3 ML VIAL SUBCUT SCH ×4 (08:06→21:41)
[2020-01-02] MEDS: NORMAL SALINE 1000 ML 1,000 ML IV PRN ×2 (08:06→22:25)
[2020-01-02] MEDS: IPRATROPIUM/ALBUTEROL 0.5-2.5 MG/3 ML AMPUL NEB SCH ×2 (08:39→15:55)
[2020-01-02] MEDS: FOLIC ACID 1 MG TABLET PO SCH (09:16)
[2020-01-02] MEDS: FAMOTIDINE INJ/PF 20 MG/2 ML SDV IV SCH ×2 (09:17→21:41)
[2020-01-02] MEDS: ENOXAPARIN SODIUM INJ 40 MG/0.4 ML DISP.SYRIN SUBCUT SCH (09:17)
[2020-01-02] MEDS: THIAMINE HCL 500 MG in NORMAL SALINE 250 ML IV SCH ×2 (10:28→17:25)
--- NOTE | 2020-01-02 12:05 | PDOC PROGRESS REPORT ---
Subjective Date:: 01/02/20 Subjective:: ALINA DORSEY is a 54 year old male with history of alcohol abuse, hepatitis C infection, who presents to the hospital for alcohol detox. He states he wants to turn his life around. He is currently experiencing symptoms of alcohol withdrawal including tremulousness, nausea, diaphoresis. He states he was sent to a detox center and he was turned back because he was too far into his withdrawal. He drinks 24 beers and some liquor every day. Last alcohol consumption was yesterday. Denies fever or chills at this time. Denies any sick exposures. In the ER, his CIWA was reported to be 14. He currently denies any hallucinations. He has had seizure in the past but says it was not from alcohol withdrawal. Denies having any other medical conditions besides hepatitis C and alcohol use. 01/02/2020. Overnight patient is stating that he was very anxious and comfortable, this morning he is a still complaining of anxiety, denies any auditory or visual hallucinations, appears very tremulous and anxious. Denies any fever, chills, nausea, vomiting. Reason For Visit: ALCOHOL WITHDRAWAL,DIAPHORESIS,TACHYCARDIA Physical Exam Vital Signs: Temp Pulse Resp BP Pulse Ox 98.1 F 91 16 140/86 H 93 01/02/20 08:13 01/02/20 08:39 01/02/20 08:39 01/02/20 07:42 01/02/20 08:39 Intake & Output 01/01/20 01/02/20 01/03/20 06:59 06:59 06:59 Intake Total 1660 1255 Output Total 800 Balance 860 1255 Weight 95.4 kg 94.4 kg General appearance: PRESENT: mild distress, obese, other - Anxious, tremulous, diaphoretic Head exam: PRESENT: atraumatic, normocephalic Respiratory exam: PRESENT: clear to auscultation andrew. ABSENT: rales, rhonchi, wheezes Cardiovascular exam: PRESENT: RRR. ABSENT: diastolic murmur, rubs, systolic murmur Neurological exam: PRESENT: alert, awake, oriented to person, oriented to place, CN II-XII grossly intact. ABSENT: motor sensory deficit Psychiatric exam: PRESENT: anxious Results Laboratory Results: 01/02/20 06:37 01/02/20 06:37 01/02/20 01/02/20 06:37 06:37 WBC 5.2 RBC 4.13 L Hgb 14.1 Hct 40.9 MCV 99 H MCH 34.1 H MCHC 34.4 RDW 16.0 H Plt Count 104 L Seg Neutrophils % 66.3 Sodium 132.4 L Potassium 4.0 Chloride 104 Carbon Dioxide 22 Anion Gap 6 BUN 13 Creatinine 0.73 Est GFR ( Amer) > 60 Glucose 80 Calcium 8.4 Phosphorus 4.0 Magnesium 2.2 Total Bilirubin 0.9 AST 104 H Alkaline Phosphatase 93 Total Protein 6.2 L Albumin 3.3 L Assessment and Plan - Diagnosis (1) Alcohol dependence with withdrawal Qualifiers: Complication of substance-induced condition: with unspecified complication Qualified Code(s): F10.239 - Alcohol dependence with withdrawal, unspecified Is this a current diagnosis for this admission?: Yes Plan: Currently in significant withdrawal. CIWA protocol Ativan as needed Standing Valium. Psychiatric consultation Check UDS Antiemetics as needed GI prophylaxis (2) History of hepatitis C Is this a current diagnosis for this admission?: Yes Plan: Follow-up with infectious disease or dye worker as outpatient. (3) Hyperglycemia Is this a current diagnosis for this admission?: Yes Plan: Blood sugar in the 200s. Denies history of diabetes. We will check an A1c and keep Accu-Cheks and sliding scale (4) Thrombocytopenia Is this a current diagnosis for this admission?: Yes Plan: Likely secondary to hepatitis C infection. Monitor. (5) Wernickes encephalopathy Is this a current diagnosis for this admission?: Yes Plan: Currently ataxic with significant nystagmus We will start patient on high-dose IV thiamine twice a day (6) Hyponatremia Is this a current diagnosis for this admission?: Yes Plan: Resolved. - Time Time Spent with patient: 25-34 minutes Medications reviewed and adjusted accordingly: Yes Anticipated Discharge Disposition: Home with Home Health Anticipated Discharge Timeframe: within 72 hours
[2020-01-03] MEDS: LORAZEPAM INJ 2 MG/1 ML VIAL IV PRN ×10 (00:05→22:34)
[2020-01-03] MEDS: IPRATROPIUM/ALBUTEROL 0.5-2.5 MG/3 ML AMPUL NEB SCH ×2 (00:27→09:11)
[2020-01-03 01:06] LABS: OSMOLALITY,URINE 659 mOsm/kg (300-900)
[2020-01-03 01:07] LABS: URINE AMPHETAMINES SCREEN NEGATIVE; URINE BARBITURATES SCREEN NEGATIVE; URINE COCAINE SCREEN NEGATIVE; URINE MARIJUANA (THC) SCREEN NEGATIVE; URINE METHADONE SCREEN NEGATIVE; URINE PHENCYCLIDINE SCREEN NEGATIVE
[2020-01-03] MEDS: NICOTINE 21 MG/24 HR PATCH.TD24 TD SCH ×2 (01:08→21:28)
[2020-01-03 01:09] LABS: URINE BENZODIAZEPINES SCREEN UNCONFIRMED POSITIVE
[2020-01-03 01:20] LABS: URINE SODIUM 222 mmol/L (30-90)
[2020-01-03] MEDS: DIAZEPAM INJ 10 MG/2 ML DISP.SYRIN IV SCH ×3 (05:04→21:28)
[2020-01-03] MEDS: NORMAL SALINE 1000 ML 1,000 ML IV PRN ×2 (05:06→16:27)
[2020-01-03 06:08] LABS: HEMATOCRIT 39.4 % (37.9-51.0); HEMOGLOBIN 13.7 g/dL (13.5-17.0); MEAN CORPUSCULAR HEMOGLOBIN 34.4 pg (27.0-33.4); MEAN CORPUSCULAR HGB CONC 34.8 g/dL (32.0-36.0); MEAN CORPUSCULAR VOLUME 99 fl (80-97); PLATELET COUNT 116 10^3/uL (150-450); RED BLOOD COUNT 3.98 10^6/uL (4.35-5.55); RED CELL DISTRIBUTION WIDTH 15.6 % (11.5-14.0); WHITE BLOOD COUNT 6.3 10^3/uL (4.0-10.5)
[2020-01-03 06:26] LABS: ALBUMIN 3.3 g/dL (3.5-5.0); ALKALINE PHOSPHATASE 96 U/L (38-126); ANION GAP 10 (5-19); ASPARTATE AMINO TRANSFERASE 93 U/L (17-59); BILIRUBIN,DIRECT 0.3 mg/dL (0.0-0.4); BLOOD UREA NITROGEN 11 mg/dL (7-20); CALCIUM 8.4 mg/dL (8.4-10.2); CARBON DIOXIDE 20 mmol/L (22-30); CHLORIDE 104 mmol/L (98-107); GLUCOSE 78 mg/dL (75-110); POTASSIUM 3.9 mmol/L (3.6-5.0); TOTAL PROTEIN 6.2 g/dL (6.3-8.2)
[2020-01-03] MEDS: INSULIN LISPRO 100 UNIT/ML 3 ML VIAL SUBCUT SCH ×4 (08:56→21:29)
[2020-01-03] MEDS: FAMOTIDINE INJ/PF 20 MG/2 ML SDV IV SCH ×2 (09:07→21:28)
[2020-01-03] MEDS: THIAMINE HCL 500 MG in NORMAL SALINE 250 ML IV SCH ×2 (09:08→17:22)
[2020-01-03] MEDS: ENOXAPARIN SODIUM INJ 40 MG/0.4 ML DISP.SYRIN SUBCUT SCH (09:08)
[2020-01-03] MEDS: FOLIC ACID 1 MG TABLET PO SCH (09:08)
[2020-01-03] MEDS ORDERED: IPRATROPIUM BROMIDE 0.02% NEB 0.5 MG/2.5 ML AMPUL NEB PRN (10:39)
--- NOTE | 2020-01-03 12:08 | PDOC PROGRESS REPORT ---
Subjective Date:: 01/03/20 Subjective:: ALINA DORSEY is a 54 year old male with history of alcohol abuse, hepatitis C infection, who presents to the hospital for alcohol detox. He states he wants to turn his life around. He is currently experiencing symptoms of alcohol withdrawal including tremulousness, nausea, diaphoresis. He states he was sent to a detox center and he was turned back because he was too far into his withdrawal. He drinks 24 beers and some liquor every day. Last alcohol consumption was yesterday. Denies fever or chills at this time. Denies any sick exposures. In the ER, his CIWA was reported to be 14. He currently denies any hallucinations. He has had seizure in the past but says it was not from alcohol withdrawal. Denies having any other medical conditions besides hepatitis C and alcohol use. 01/02/2020. Overnight patient is stating that he was very anxious and comfortable, this morning he is a still complaining of anxiety, denies any auditory or visual hallucinations, appears very tremulous and anxious. Denies any fever, chills, nausea, vomiting. 01/03/2020. Patient has been anxious and tremulous overnight, this morning patient appears very anxious but however alert and oriented, receiving DuoNeb's, patient is stating that he did not have a good night however does not provide much information, denies any auditory visual hallucination. Reason For Visit: ALCOHOL WITHDRAWAL,DIAPHORESIS,TACHYCARDIA Physical Exam Vital Signs: Temp Pulse Resp BP Pulse Ox 97.9 F 105 H 20 149/79 H 96 01/03/20 10:00 01/03/20 09:10 01/03/20 09:10 01/03/20 07:38 01/03/20 09:10 Intake & Output 01/02/20 01/03/20 01/04/20 06:59 06:59 06:59 Intake Total 1660 3478 255 Output Total 800 1000 Balance 860 2478 255 Weight 94.4 kg 92.3 kg General appearance: PRESENT: mild distress, other - Anxious and tremulous Head exam: PRESENT: atraumatic, normocephalic Neck exam: ABSENT: carotid bruit, JVD, lymphadenopathy, thyromegaly Respiratory exam: PRESENT: clear to auscultation andrew, tachypnea. ABSENT: rales, rhonchi, wheezes Cardiovascular exam: PRESENT: RRR. ABSENT: diastolic murmur, rubs, systolic murmur GI/Abdominal exam: PRESENT: normal bowel sounds, soft. ABSENT: distended, guarding, mass, organolmegaly, rebound, tenderness Neurological exam: PRESENT: alert, awake, oriented to person, oriented to place, CN II-XII grossly intact. ABSENT: motor sensory deficit Psychiatric exam: PRESENT: anxious Results Laboratory Results: 01/03/20 05:18 01/03/20 05:18 01/02/20 01/03/20 01/03/20 23:51 05:18 05:18 WBC 6.3 RBC 3.98 L Hgb 13.7 Hct 39.4 MCV 99 H MCH 34.4 H MCHC 34.8 RDW 15.6 H Plt Count 116 L Sodium 134.0 L Potassium 3.9 Chloride 104 Carbon Dioxide 20 L Anion Gap 10 BUN 11 Creatinine 0.67 Est GFR ( Amer) > 60 Glucose 78 Calcium 8.4 Magnesium 2.0 Total Bilirubin 1.0 AST 93 H Alkaline Phosphatase 96 Total Protein 6.2 L Albumin 3.3 L Urine Osmolality 659 Assessment and Plan - Diagnosis (1) Alcohol dependence with withdrawal Qualifiers: Complication of substance-induced condition: with unspecified complication Qualified Code(s): F10.239 - Alcohol dependence with withdrawal, unspecified Is this a current diagnosis for this admission?: Yes Plan: Currently in significant withdrawal. CIWA protocol Ativan as needed Standing Valium. Psychiatric consultation Check UDS Antiemetics as needed GI prophylaxis (2) History of hepatitis C Is this a current diagnosis for this admission?: Yes Plan: Follow-up with infectious disease or computer assembler as outpatient. (3) Hyperglycemia Is this a current diagnosis for this admission?: Yes Plan: Blood sugar in the 200s. Denies history of diabetes. We will check an A1c and keep Accu-Cheks and sliding scale (4) Thrombocytopenia Is this a current diagnosis for this admission?: Yes Plan: Likely secondary to hepatitis C infection. Monitor. (5) Wernickes encephalopathy Is this a current diagnosis for this admission?: Yes Plan: Currently ataxic with significant nystagmus We will start patient on high-dose IV thiamine twice a day (6) Hyponatremia Is this a current diagnosis for this admission?: Yes Plan: Resolved. - Time Time Spent with patient: 25-34 minutes Anticipated Discharge Disposition: Home, Self Care Anticipated Discharge Timeframe: within 48 hours
[2020-01-03] MEDS: TEMAZEPAM 7.5 MG CAPSULE PO PRN (22:28)
[2020-01-04] MEDS: LORAZEPAM INJ 2 MG/1 ML VIAL IV PRN ×9 (00:40→23:02)
[2020-01-04] MEDS: NORMAL SALINE 1000 ML 1,000 ML IV PRN ×3 (02:30→21:07)
[2020-01-04] MEDS: PROMETHAZINE HCL INJ 25 MG/1 ML VIAL IV PRN ×3 (03:35→16:10)
[2020-01-04] MEDS: ACETAMINOPHEN 325 MG TABLET PO PRN (05:04)
[2020-01-04] MEDS: DIAZEPAM INJ 10 MG/2 ML DISP.SYRIN IV SCH ×3 (05:05→21:07)
[2020-01-04 05:45] LABS: ABSOLUTE EOSINOPHILS # (AUTO) 0.1 10^3/uL (0.0-0.6); ABSOLUTE LYMPHOCYTES (AUTO) 1.7 10^3/uL (0.5-4.7); ABSOLUTE MONOCYTES (AUTO) 0.6 10^3/uL (0.1-1.4); ABSOLUTE NEUT (AUTO) 3.9 10^3/uL (1.7-8.2); BASOPHILS % (AUTO) 0.3 % (0-2); EOSINOPHILS % (AUTO) 1.8 % (0-6); HEMATOCRIT 43.2 % (37.9-51.0); HEMOGLOBIN 14.9 g/dL (13.5-17.0); LYMPHOCYTES % (AUTO) 26.7 % (13-45); MEAN CORPUSCULAR HEMOGLOBIN 33.9 pg (27.0-33.4); MEAN CORPUSCULAR HGB CONC 34.6 g/dL (32.0-36.0); MEAN CORPUSCULAR VOLUME 98 fl (80-97); PLATELET COUNT 151 10^3/uL (150-450); RED BLOOD COUNT 4.41 10^6/uL (4.35-5.55); RED CELL DISTRIBUTION WIDTH 15.6 % (11.5-14.0); SEGMENTED NEUTROPHILS % (AUTO) 61.2 % (42-78); TOTAL CELLS COUNTED % (AUTO) 100 %; WHITE BLOOD COUNT 6.4 10^3/uL (4.0-10.5)
[2020-01-04 06:19] LABS: ALBUMIN 3.8 g/dL (3.5-5.0); ALKALINE PHOSPHATASE 109 U/L (38-126); ANION GAP 9 (5-19); ASPARTATE AMINO TRANSFERASE 119 U/L (17-59); BILIRUBIN,DIRECT 0.3 mg/dL (0.0-0.4); BILIRUBIN,TOTAL 1.1 mg/dL (0.2-1.3); BLOOD UREA NITROGEN 9 mg/dL (7-20); CALCIUM 8.9 mg/dL (8.4-10.2); CARBON DIOXIDE 21 mmol/L (22-30); CHLORIDE 106 mmol/L (98-107); GLUCOSE 84 mg/dL (75-110); POTASSIUM 4.2 mmol/L (3.6-5.0)
[2020-01-04] MEDS: INSULIN LISPRO 100 UNIT/ML 3 ML VIAL SUBCUT SCH ×4 (08:38→20:59)
[2020-01-04] MEDS: ENOXAPARIN SODIUM INJ 40 MG/0.4 ML DISP.SYRIN SUBCUT SCH (09:52)
[2020-01-04] MEDS: THIAMINE HCL 500 MG in NORMAL SALINE 250 ML IV SCH ×2 (09:52→17:03)
[2020-01-04] MEDS: FAMOTIDINE INJ/PF 20 MG/2 ML SDV IV SCH ×2 (09:52→21:07)
[2020-01-04] MEDS: FOLIC ACID 1 MG TABLET PO SCH (09:52)
--- NOTE | 2020-01-04 10:09 | PDOC PROGRESS REPORT ---
Subjective Date:: 01/04/20 Subjective:: ALINA DORSEY is a 54 year old male with history of alcohol abuse, hepatitis C infection, who presents to the hospital for alcohol detox. He states he wants to turn his life around. He is currently experiencing symptoms of alcohol withdrawal including tremulousness, nausea, diaphoresis. He states he was sent to a detox center and he was turned back because he was too far into his withdrawal. He drinks 24 beers and some liquor every day. Last alcohol consumption was yesterday. Denies fever or chills at this time. Denies any sick exposures. In the ER, his CIWA was reported to be 14. He currently denies any hallucinations. He has had seizure in the past but says it was not from alcohol withdrawal. Denies having any other medical conditions besides hepatitis C and alcohol use. 01/02/2020. Overnight patient is stating that he was very anxious and comfortable, this morning he is a still complaining of anxiety, denies any auditory or visual hallucinations, appears very tremulous and anxious. Denies any fever, chills, nausea, vomiting. 01/03/2020. Patient has been anxious and tremulous overnight, this morning patient appears very anxious but however alert and oriented, receiving DuoNeb's, patient is stating that he did not have a good night however does not provide much information, denies any auditory visual hallucination. 01/04/2020. Saw patient this morning just after receiving benzodiazepine, patient does not appear to be in any acute distress, somnolent but is arousable and answering questions appropriately, stating that he had a rough night and he was having bad dreams, as per primary nurse patient was actively hallucinating all night and was noted to be very anxious and has been receiving benzodiazepines. Patient denies any fever, chills, nausea, vomiting. P.o. tolerant. Reason For Visit: ALCOHOL WITHDRAWAL,DIAPHORESIS,TACHYCARDIA Physical Exam Vital Signs: Temp Pulse Resp BP Pulse Ox 97.9 F 101 H 15 150/94 H 98 01/04/20 08:42 01/04/20 07:00 01/04/20 04:11 01/04/20 04:11 01/04/20 04:11 Intake & Output 01/03/20 01/04/20 01/05/20 06:59 06:59 06:59 Intake Total 3478 2990 Output Total 1000 2100 Balance 2478 890 Weight 92.3 kg 92.8 kg General appearance: PRESENT: mild distress, well-developed, well-nourished, other Head exam: PRESENT: atraumatic, normocephalic Respiratory exam: PRESENT: clear to auscultation andrew. ABSENT: rales, rhonchi, wheezes Cardiovascular exam: PRESENT: RRR, tachycardia. ABSENT: diastolic murmur, rubs, systolic murmur GI/Abdominal exam: PRESENT: normal bowel sounds, soft. ABSENT: distended, guarding, mass, organolmegaly, rebound, tenderness Neurological exam: PRESENT: CN II-XII grossly intact, other - Somnolent but easily arousable. ABSENT: motor sensory deficit Psychiatric exam: PRESENT: anxious Results Laboratory Results: 01/04/20 04:58 01/04/20 04:58 01/04/20 01/04/20 04:58 04:58 WBC 6.4 RBC 4.41 Hgb 14.9 Hct 43.2 MCV 98 H MCH 33.9 H MCHC 34.6 RDW 15.6 H Plt Count 151 Seg Neutrophils % 61.2 Sodium 136.0 L Potassium 4.2 Chloride 106 Carbon Dioxide 21 L Anion Gap 9 BUN 9 Creatinine 0.66 Est GFR ( Amer) > 60 Glucose 84 Calcium 8.9 Total Bilirubin 1.1 AST 119 H Alkaline Phosphatase 109 Total Protein 7.0 Albumin 3.8 Assessment and Plan - Diagnosis (1) Alcohol dependence with withdrawal Qualifiers: Complication of substance-induced condition: with unspecified complication Qualified Code(s): F10.239 - Alcohol dependence with withdrawal, unspecified Is this a current diagnosis for this admission?: Yes Plan: CIWA score significantly elevated. Currently in significant withdrawal. Continue CIWA protocol, DT precautions, Ativan as needed, Standing Valium. Antiemetics as needed, GI prophylaxis (2) History of hepatitis C Is this a current diagnosis for this admission?: Yes Plan: Follow-up with infectious disease or diagnostic medical sonographer as outpatient. (3) Hyperglycemia Is this a current diagnosis for this admission?: Yes Plan: Blood sugar in the 200s. Denies history of diabetes. We will check an A1c and keep Accu-Cheks and sliding scale (4) Thrombocytopenia Is this a current diagnosis for this admission?: Yes Plan: Likely secondary to hepatitis C infection. Monitor. (5) Wernickes encephalopathy Is this a current diagnosis for this admission?: Yes Plan: Currently ataxic with significant nystagmus We will start patient on high-dose IV thiamine twice a day (6) Hyponatremia Is this a current diagnosis for this admission?: Yes Plan: Resolved. - Time Time Spent with patient: 25-34 minutes Anticipated Discharge Disposition: Home, Self Care Anticipated Discharge Timeframe: within 48 hours
--- NOTE | 2020-01-04 18:57 | PSYCHOLOGICAL NOTE ---
Psych Note - Psych Note Date seen by psych provider: 01/02/20 Psych Note: Patient was seen 12/31/2019 (please seen note in previous visit) and was assisted with voluntary placement at [facility]; unfortunately, the patient presented again to [facility] ED less than 2 hours after discharge due to [facility] being unable to assist the patient due to sodium levels. At this time, the patient appears to need medical assistance with detox (as he has been admitted medically), this is not something [facility] can assist with. Once the patient is detoxed, he is recommended to follow through with original recommendations for post detox and obtain substance abuse treatment (ie rehab, intense outpatient or outpatient services).
[2020-01-04] MEDS: NICOTINE 21 MG/24 HR PATCH.TD24 TD SCH (21:07)
[2020-01-04] MEDS: TEMAZEPAM 7.5 MG CAPSULE PO PRN (23:25)
[2020-01-05] MEDS: LORAZEPAM INJ 2 MG/1 ML VIAL IV PRN ×3 (03:00→21:57)
[2020-01-05] MEDS: DIAZEPAM INJ 10 MG/2 ML DISP.SYRIN IV SCH ×3 (05:49→21:57)
[2020-01-05 07:40] LABS: ALBUMIN 3.5 g/dL (3.5-5.0); ALKALINE PHOSPHATASE 98 U/L (38-126); ANION GAP 14 (5-19); ASPARTATE AMINO TRANSFERASE 86 U/L (17-59); BILIRUBIN,DIRECT 0.3 mg/dL (0.0-0.4); BLOOD UREA NITROGEN 11 mg/dL (7-20); CALCIUM 8.6 mg/dL (8.4-10.2); CARBON DIOXIDE 16 mmol/L (22-30); CHLORIDE 107 mmol/L (98-107); POTASSIUM 3.9 mmol/L (3.6-5.0); TOTAL PROTEIN 6.5 g/dL (6.3-8.2)
[2020-01-05 08:07] LABS: GLUCOSE 69 mg/dL (75-110)
[2020-01-05] MEDS: INSULIN LISPRO 100 UNIT/ML 3 ML VIAL SUBCUT SCH (08:20)
[2020-01-05] MEDS: ENOXAPARIN SODIUM INJ 40 MG/0.4 ML DISP.SYRIN SUBCUT SCH (10:25)
[2020-01-05] MEDS: FOLIC ACID 1 MG TABLET PO SCH (10:25)
[2020-01-05] MEDS: FAMOTIDINE INJ/PF 20 MG/2 ML SDV IV SCH ×2 (10:25→22:22)
[2020-01-05] MEDS: THIAMINE HCL 500 MG in NORMAL SALINE 250 ML IV SCH (10:37)
--- NOTE | 2020-01-05 12:26 | PDOC PROGRESS REPORT ---
Subjective Date:: 01/05/20 Subjective:: ALINA DORSEY is a 54 year old male with history of alcohol abuse, hepatitis C infection, who presents to the hospital for alcohol detox. He states he wants to turn his life around. He is currently experiencing symptoms of alcohol withdrawal including tremulousness, nausea, diaphoresis. He states he was sent to a detox center and he was turned back because he was too far into his withdrawal. He drinks 24 beers and some liquor every day. Last alcohol consumption was yesterday. Denies fever or chills at this time. Denies any sick exposures. In the ER, his CIWA was reported to be 14. He currently denies any hallucinations. He has had seizure in the past but says it was not from alcohol withdrawal. Denies having any other medical conditions besides hepatitis C and alcohol use. 01/02/2020. Overnight patient is stating that he was very anxious and comfortable, this morning he is a still complaining of anxiety, denies any auditory or visual hallucinations, appears very tremulous and anxious. Denies any fever, chills, nausea, vomiting. 01/03/2020. Patient has been anxious and tremulous overnight, this morning patient appears very anxious but however alert and oriented, receiving DuoNeb's, patient is stating that he did not have a good night however does not provide much information, denies any auditory visual hallucination. 01/04/2020. Saw patient this morning just after receiving benzodiazepine, patient does not appear to be in any acute distress, somnolent but is arousable and answering questions appropriately, stating that he had a rough night and he was having bad dreams, as per primary nurse patient was actively hallucinating all night and was noted to be very anxious and has been receiving benzodiazepines. Patient denies any fever, chills, nausea, vomiting. P.o. tolerant. 01/05/2020. Patient has been hallucinating all night, and had to be placed on restraint at was getting out of the bed and was risk of fall, this morning patient is awake and alert and oriented x3, appears very tremulous and diaphoretic, denies any auditory visual hallucination, denies any fever, chills, nausea, vomiting. P.o. tolerant. Reason For Visit: ALCOHOL WITHDRAWAL,DIAPHORESIS,TACHYCARDIA Physical Exam Vital Signs: Temp Pulse Resp BP Pulse Ox 97.7 F 108 H 18 124/81 97 01/05/20 11:09 01/05/20 11:09 01/05/20 11:09 01/05/20 11:09 01/05/20 11:09 Intake & Output 01/04/20 01/05/20 01/06/20 06:59 06:59 06:59 Intake Total 2990 2732 Output Total 2100 1900 Balance 890 832 Weight 92.8 kg 92 kg General appearance: PRESENT: mild distress, obese, well-developed, well- nourished, other - Diaphoretic, tremulous and anxious Head exam: PRESENT: atraumatic, normocephalic Neck exam: ABSENT: carotid bruit, JVD, lymphadenopathy, thyromegaly Respiratory exam: PRESENT: clear to auscultation andrew. ABSENT: rales, rhonchi, wheezes Cardiovascular exam: PRESENT: RRR. ABSENT: diastolic murmur, rubs, systolic murmur GI/Abdominal exam: PRESENT: normal bowel sounds, soft. ABSENT: distended, guarding, mass, organolmegaly, rebound, tenderness Neurological exam: PRESENT: alert, awake, oriented to person, oriented to place, CN II-XII grossly intact. ABSENT: motor sensory deficit Psychiatric exam: PRESENT: anxious Skin exam: PRESENT: dry, intact, warm. ABSENT: cyanosis, rash Results Laboratory Results: 01/04/20 04:58 01/05/20 06:21 01/05/20 06:21 Sodium 137.3 Potassium 3.9 Chloride 107 Carbon Dioxide 16 L Anion Gap 14 BUN 11 Creatinine 0.72 Est GFR ( Amer) > 60 Glucose 69 L Calcium 8.6 Total Bilirubin 1.0 AST 86 H Alkaline Phosphatase 98 Total Protein 6.5 Albumin 3.5 Assessment and Plan - Diagnosis (1) Alcohol dependence with withdrawal Qualifiers: Complication of substance-induced condition: with unspecified complication Qualified Code(s): F10.239 - Alcohol dependence with withdrawal, unspecified Is this a current diagnosis for this admission?: Yes Plan: CIWA score significantly elevated. Still needing scheduled benzodiazepines. Currently in significant withdrawal. Continue CIWA protocol, DT precautions, Ativan as needed, Standing Valium. Antiemetics as needed, GI prophylaxis (2) History of hepatitis C Is this a current diagnosis for this admission?: Yes Plan: Follow-up with infectious disease or lift operator as outpatient. (3) Hyperglycemia Is this a current diagnosis for this admission?: Yes Plan: Hemoglobin A1c 5.6. Sugar has been controlled. We will DC diabetic protocol. P.o. tolerant. (4) Thrombocytopenia Is this a current diagnosis for this admission?: Yes Plan: Resolved. Likely secondary to hepatitis C infection. Monitor. (5) Wernickes encephalopathy Is this a current diagnosis for this admission?: Yes Plan: Continue thiamine. Fall precautions. (6) Hyponatremia Is this a current diagnosis for this admission?: Yes Plan: Resolved. - Time Time Spent with patient: 35 or more minutes Anticipated Discharge Disposition: Home with Home Health Anticipated Discharge Timeframe: within 72 hours
[2020-01-05] MEDS: THIAMINE HCL 100 MG TABLET PO SCH (13:45)
[2020-01-05] MEDS: FAMOTIDINE 20 MG TABLET PO SCH (21:55)
[2020-01-05] MEDS: NICOTINE 21 MG/24 HR PATCH.TD24 TD SCH (21:57)
[2020-01-05] MEDS: NORMAL SALINE 1000 ML 1,000 ML IV PRN (23:31)
[2020-01-06] MEDS: LORAZEPAM INJ 2 MG/1 ML VIAL IV PRN ×6 (00:23→23:59)
[2020-01-06] MEDS ORDERED: LIDOCAINE 2% JELLY 5 ML TUBE MM ONE (05:15)
[2020-01-06] MEDS ORDERED: LIDOCAINE 2% URO-JET 5 ML KIT ONE (05:26)
[2020-01-06] MEDS: DIAZEPAM INJ 10 MG/2 ML DISP.SYRIN IV SCH ×3 (05:31→21:59)
[2020-01-06 06:23] LABS: ABSOLUTE EOSINOPHILS # (AUTO) 0.1 10^3/uL (0.0-0.6); ABSOLUTE LYMPHOCYTES (AUTO) 1.6 10^3/uL (0.5-4.7); ABSOLUTE MONOCYTES (AUTO) 0.9 10^3/uL (0.1-1.4); ABSOLUTE NEUT (AUTO) 3.7 10^3/uL (1.7-8.2); BASOPHILS % (AUTO) 0.5 % (0-2); EOSINOPHILS % (AUTO) 1.1 % (0-6); HEMATOCRIT 42.6 % (37.9-51.0); LYMPHOCYTES % (AUTO) 25.8 % (13-45); MEAN CORPUSCULAR HEMOGLOBIN 34.4 pg (27.0-33.4); MEAN CORPUSCULAR HGB CONC 35.3 g/dL (32.0-36.0); MEAN CORPUSCULAR VOLUME 97 fl (80-97); MONOCYTES % (AUTO) 14.1 % (3-13); PLATELET COUNT 224 10^3/uL (150-450); RED BLOOD COUNT 4.37 10^6/uL (4.35-5.55); RED CELL DISTRIBUTION WIDTH 15.4 % (11.5-14.0); SEGMENTED NEUTROPHILS % (AUTO) 58.5 % (42-78); TOTAL CELLS COUNTED % (AUTO) 100 %; WHITE BLOOD COUNT 6.4 10^3/uL (4.0-10.5)
[2020-01-06] MEDS: ACETAMINOPHEN 325 MG TABLET PO PRN ×2 (08:17→14:43)
[2020-01-06 09:18] LABS: ALBUMIN 3.6 g/dL (3.5-5.0); ALKALINE PHOSPHATASE 103 U/L (38-126); ANION GAP 7 (5-19); ASPARTATE AMINO TRANSFERASE 88 U/L (17-59); BILIRUBIN,DIRECT 0.3 mg/dL (0.0-0.4); BILIRUBIN,TOTAL 0.9 mg/dL (0.2-1.3); BLOOD UREA NITROGEN 10 mg/dL (7-20); CALCIUM 8.9 mg/dL (8.4-10.2); CARBON DIOXIDE 24 mmol/L (22-30); CHLORIDE 105 mmol/L (98-107); GLUCOSE 82 mg/dL (75-110); POTASSIUM 3.8 mmol/L (3.6-5.0); TOTAL PROTEIN 6.6 g/dL (6.3-8.2)
[2020-01-06] MEDS: FAMOTIDINE INJ/PF 20 MG/2 ML SDV IV SCH (10:15)
[2020-01-06] MEDS: ENOXAPARIN SODIUM INJ 40 MG/0.4 ML DISP.SYRIN SUBCUT SCH (10:15)
[2020-01-06] MEDS: FAMOTIDINE 20 MG TABLET PO SCH ×2 (10:15→22:00)
[2020-01-06] MEDS: THIAMINE HCL 100 MG TABLET PO SCH (10:15)
[2020-01-06] MEDS: FOLIC ACID 1 MG TABLET PO SCH (10:15)
[2020-01-06] MEDS: INSULIN LISPRO 100 UNIT/ML 3 ML VIAL SUBCUT SCH (11:00)
[2020-01-06] MEDS: NORMAL SALINE 1000 ML 1,000 ML IV PRN (11:25)
[2020-01-06] MEDS ORDERED: LORAZEPAM INJ 2 MG/1 ML VIAL IV PRN (17:00)
--- NOTE | 2020-01-06 17:06 | PDOC PROGRESS REPORT ---
Subjective Date:: 01/06/20 Subjective:: Patient complains of ataxia and disequilibrium while walking. Reason For Visit: ALCOHOL WITHDRAWAL,DIAPHORESIS,TACHYCARDIA Physical Exam Vital Signs: Temp Pulse Resp BP Pulse Ox 97.4 F 109 H 18 138/94 H 99 01/06/20 11:53 01/06/20 11:53 01/06/20 11:53 01/06/20 11:53 01/06/20 11:53 Intake & Output 01/05/20 01/06/20 01/07/20 06:59 06:59 06:59 Intake Total 2732 1960 1318 Output Total 1900 300 380 Balance 832 1660 938 Weight 92 kg 92.1 kg General appearance: PRESENT: no acute distress, cooperative Eye exam: PRESENT: nystagmus - Very minimal Neck exam: ABSENT: JVD Respiratory exam: PRESENT: clear to auscultation andrew, symmetrical, unlabored. ABSENT: tachypnea, wheezes Cardiovascular exam: PRESENT: RRR, +S1, +S2. ABSENT: tachycardia GI/Abdominal exam: PRESENT: soft. ABSENT: rebound, rigid, tenderness Neurological exam: PRESENT: alert, awake, oriented to person, oriented to place, oriented to time Psychiatric exam: ABSENT: agitated, anxious Results Laboratory Results: 01/06/20 06:07 01/06/20 08:00 01/06/20 01/06/20 01/06/20 06:07 06:07 08:00 WBC 6.4 RBC 4.37 Hgb 15.0 Hct 42.6 MCV 97 MCH 34.4 H MCHC 35.3 RDW 15.4 H Plt Count 224 Seg Neutrophils % 58.5 Sodium Cancelled 135.8 L Potassium Cancelled 3.8 Chloride Cancelled 105 Carbon Dioxide Cancelled 24 Anion Gap Cancelled 7 BUN Cancelled 10 Creatinine Cancelled 0.71 Est GFR ( Amer) Cancelled > 60 Est GFR (Non-Af Amer) Cancelled Glucose Cancelled 82 Calcium Cancelled 8.9 Total Bilirubin Cancelled 0.9 AST Cancelled 88 H Alkaline Phosphatase Cancelled 103 Total Protein Cancelled 6.6 Albumin Cancelled 3.6 01/01/20 11:29 Blood Blood Culture - Final NO GROWTH IN 5 DAYS 01/01/20 10:29 Blood Blood Culture - Final NO GROWTH IN 5 DAYS Assessment and Plan - Diagnosis (1) Alcohol dependence with withdrawal Qualifiers: Complication of substance-induced condition: with unspecified complication Qualified Code(s): F10.239 - Alcohol dependence with withdrawal, unspecified Is this a current diagnosis for this admission?: Yes Plan: CIWA score was high this morning. However on my assessment, he seemed pretty okay. His withdrawal only appeared to be very mild to my assessment only with tremors in the hands. Fully oriented. Continue CIWA protocol but I will decrease his Ativan scale and decrease his standing Valium dose. Goal is to try to wean down these. Antiemetics as needed, GI prophylaxis (2) Wernickes encephalopathy Is this a current diagnosis for this admission?: Yes Plan: I will give him on the dose of IV thiamine as he still does have nystagmus but it is minimal at this point. Continue p.o. thiamine. Physical and Occupational Therapy. Notably complains of disequilibrium and ataxia. (3) Hyponatremia Is this a current diagnosis for this admission?: Yes (4) Thrombocytopenia Is this a current diagnosis for this admission?: Yes (5) History of hepatitis C Is this a current diagnosis for this admission?: Yes - Time Time Spent with patient: Less than 15 minutes Anticipated Discharge Disposition: Home, Self Care Anticipated Discharge Timeframe: within 48 hours
[2020-01-06] MEDS ORDERED: THIAMINE HCL 500 MG in NORMAL SALINE 250 ML IV ONE (22:00)
[2020-01-06] MEDS: NICOTINE 21 MG/24 HR PATCH.TD24 TD SCH (22:00)
[2020-01-07] MEDS: ACETAMINOPHEN 325 MG TABLET PO PRN (01:21)
[2020-01-07] MEDS: LORAZEPAM INJ 2 MG/1 ML VIAL IV PRN ×2 (04:19→08:18)
[2020-01-07] MEDS: DIAZEPAM INJ 10 MG/2 ML DISP.SYRIN IV SCH (09:58)
[2020-01-07] MEDS: ENOXAPARIN SODIUM INJ 40 MG/0.4 ML DISP.SYRIN SUBCUT SCH (09:58)
[2020-01-07] MEDS: FOLIC ACID 1 MG TABLET PO SCH (09:59)
[2020-01-07] MEDS: FAMOTIDINE 20 MG TABLET PO SCH ×2 (09:59→21:38)
[2020-01-07] MEDS: THIAMINE HCL 100 MG TABLET PO SCH (09:59)
[2020-01-07] MEDS ORDERED: LORAZEPAM INJ 2 MG/1 ML VIAL IV PRN (12:05)
--- NOTE | 2020-01-07 12:15 | PDOC PROGRESS REPORT ---
Subjective Date:: 01/07/20 Subjective:: Patient is feeling better this morning. He still has some tremors. He was able to work with physical therapy. He denies any other complaints. Reason For Visit: ALCOHOL WITHDRAWAL,DIAPHORESIS,TACHYCARDIA Physical Exam Vital Signs: Temp Pulse Resp BP Pulse Ox 98.0 F 120 H 18 130/80 H 98 01/07/20 11:33 01/07/20 11:33 01/07/20 11:33 01/07/20 11:33 01/07/20 11:33 Intake & Output 01/06/20 01/07/20 01/08/20 06:59 06:59 06:59 Intake Total 1960 2693 Output Total 300 1580 Balance 1660 1113 Weight 92.1 kg 92.7 kg General appearance: PRESENT: no acute distress, cooperative Eye exam: ABSENT: nystagmus Neck exam: ABSENT: JVD Respiratory exam: PRESENT: clear to auscultation andrew, unlabored. ABSENT: accessory muscle use, retraction, tachypnea, wheezes Cardiovascular exam: PRESENT: +S1, +S2 Neurological exam: PRESENT: alert, awake, oriented to person, oriented to place, oriented to time, oriented to situation, other - Tremors in arms Results Laboratory Results: 01/06/20 06:07 01/06/20 08:00 01/01/20 11:29 Blood Blood Culture - Final NO GROWTH IN 5 DAYS 01/01/20 10:29 Blood Blood Culture - Final NO GROWTH IN 5 DAYS Assessment and Plan - Diagnosis (1) Alcohol dependence with withdrawal Qualifiers: Complication of substance-induced condition: with unspecified complication Qualified Code(s): F10.239 - Alcohol dependence with withdrawal, unspecified Is this a current diagnosis for this admission?: Yes Plan: CIWA scores look better today. He remains without delirium. Continue CIWA protocol and continue to wean his PRN Ativan and standing Valium doses. Goal is to try to wean down these. Antiemetics as needed, GI prophylaxis (2) Wernickes encephalopathy Is this a current diagnosis for this admission?: Yes Plan: Nystagmus has resolved on assessment today. Still some mild ataxia but was able to ambulate with physical therapy and 100 feet with only minimal assist to co ntact-guard. Continue oral thiamine supplements. (3) Hyponatremia Is this a current diagnosis for this admission?: Yes (4) Thrombocytopenia Is this a current diagnosis for this admission?: Yes (5) History of hepatitis C Is this a current diagnosis for this admission?: Yes - Time Time Spent with patient: Less than 15 minutes Anticipated Discharge Disposition: Home, Self Care Anticipated Discharge Timeframe: within 48 hours
[2020-01-07] MEDS: LORAZEPAM 1 MG TABLET PO PRN ×3 (12:39→20:41)
[2020-01-07] MEDS: DIAZEPAM 5 MG TABLET PO SCH (21:38)
[2020-01-07] MEDS: NICOTINE 21 MG/24 HR PATCH.TD24 TD SCH (21:38)
[2020-01-08] MEDS: LORAZEPAM 1 MG TABLET PO PRN ×2 (03:36→07:40)
[2020-01-08] MEDS ORDERED: LORAZEPAM 1 MG TABLET PO PRN (07:49)
[2020-01-08] MEDS: ACETAMINOPHEN 325 MG TABLET PO PRN ×2 (08:09→21:10)
[2020-01-08] MEDS: FOLIC ACID 1 MG TABLET PO SCH (10:08)
[2020-01-08] MEDS: FAMOTIDINE 20 MG TABLET PO SCH ×2 (10:08→21:10)
[2020-01-08] MEDS: THIAMINE HCL 100 MG TABLET PO SCH (10:08)
[2020-01-08] MEDS: DIAZEPAM 5 MG TABLET PO SCH (10:09)
[2020-01-08] MEDS: ENOXAPARIN SODIUM INJ 40 MG/0.4 ML DISP.SYRIN SUBCUT SCH (11:47)
--- NOTE | 2020-01-08 15:55 | PDOC PROGRESS REPORT ---
Subjective Date:: 01/08/20 Subjective:: Patient has no complaints today. Feels well. He has been walking with physical therapy and ambulating with a front wheeled walker. Reason For Visit: ALCOHOL WITHDRAWAL,DIAPHORESIS,TACHYCARDIA Physical Exam Vital Signs: Temp Pulse Resp BP Pulse Ox 97.6 F 84 18 134/98 H 97 01/08/20 11:21 01/08/20 14:00 01/08/20 11:21 01/08/20 11:21 01/08/20 11:21 Intake & Output 01/07/20 01/08/20 01/09/20 06:59 06:59 06:59 Intake Total 2693 300 472 Output Total 1580 2015 Balance 1113 -1265 472 Weight 92.7 kg 91.7 kg 91.7 kg General appearance: PRESENT: no acute distress, cooperative Neck exam: ABSENT: JVD Respiratory exam: PRESENT: unlabored. ABSENT: tachypnea, wheezes Cardiovascular exam: PRESENT: RRR, +S1, +S2. ABSENT: tachycardia Neurological exam: PRESENT: alert, awake, oriented to person, oriented to place, oriented to time, oriented to situation, other - Tremors on outstretched arm Psychiatric exam: ABSENT: agitated, anxious Focused psych exam: ABSENT: pressured speech, restlessness Skin exam: ABSENT: jaundice Results Laboratory Results: 01/06/20 06:07 01/06/20 08:00 Assessment and Plan - Diagnosis (1) Alcohol dependence with withdrawal Qualifiers: Complication of substance-induced condition: with unspecified complication Qualified Code(s): F10.239 - Alcohol dependence with withdrawal, unspecified Is this a current diagnosis for this admission?: Yes Plan: My assessment, his withdrawal seems mild at this point. It seems he got his Ativan p.o a few times yesterday but was not given according to CIWA protocol as ordered as his CIWA scores were documented to all be below 10. I have discontinued all his benzodiazepines including his diazepam and Ativan. We will monitor him. May try some Neurontin if needed. I discussed with the Nurse practitioner at [facility] who seems fixated on the fact that patient is working with physical therapy as an exclusion criteria to impede taking him in. I have explained to her that patient ambulated very well with front wheeled walker and only standby assist but she does not seem to understand and has declined accepting patient. Antiemetics as needed, GI prophylaxis (2) Wernickes encephalopathy Is this a current diagnosis for this admission?: Yes Plan: Continue oral thiamine supplements. Did very well with PT. Will be discharged home with walker once his withdrawal is mostly resolved. (3) Hyponatremia Is this a current diagnosis for this admission?: Yes (4) Thrombocytopenia Is this a current diagnosis for this admission?: Yes Plan: Resolved. (5) History of hepatitis C Is this a current diagnosis for this admission?: Yes Plan: Follow-up with infectious disease or slitter helper as outpatient. - Time Time Spent with patient: Less than 15 minutes Anticipated Discharge Disposition: Home with Home Health Anticipated Discharge Timeframe: within 24 hours
[2020-01-08] MEDS: NICOTINE 21 MG/24 HR PATCH.TD24 TD SCH (21:10)
[2020-01-08] MEDS ORDERED: HYDROXYZINE PAMOATE 50 MG CAPSULE PO ONE (23:30)
[2020-01-09] MEDS: ACETAMINOPHEN 325 MG TABLET PO PRN (03:07)
[2020-01-09] MEDS ORDERED: IBUPROFEN 400 MG TABLET PO ONE (05:30)
[2020-01-09] MEDS: FAMOTIDINE 20 MG TABLET PO SCH (09:02)
[2020-01-09] MEDS: THIAMINE HCL 100 MG TABLET PO SCH (09:02)
[2020-01-09] MEDS: FOLIC ACID 1 MG TABLET PO SCH (09:02)
[2020-01-09] MEDS: ENOXAPARIN SODIUM INJ 40 MG/0.4 ML DISP.SYRIN SUBCUT SCH (09:03)
--- NOTE | 2020-01-09 11:47 | PDOC DISCHARGE SUMMARY ---
Impression - Admit/DC Date/PCP Admission Date/Primary Care Provider: 01/01/20 05:57 Discharge Date: 01/09/20 - Discharge Diagnosis (1) Alcohol dependence with withdrawal Is this a current diagnosis for this admission?: Yes (2) Wernickes encephalopathy Is this a current diagnosis for this admission?: Yes (3) Hyponatremia Is this a current diagnosis for this admission?: Yes (4) Thrombocytopenia Is this a current diagnosis for this admission?: Yes (5) History of hepatitis C Is this a current diagnosis for this admission?: Yes - Additional Information Resuscitation Status: Full Code Discharge Diet: Regular Referrals: [facility] [Provider Group] Prescriptions: Folic Acid [Folvite 1 mg Tablet] 1 mg PO DAILY #30 tablet Famotidine [Pepcid 20 mg Tablet] 20 mg PO Q12 #60 tablet Thiamine HCl [Thiamine 100 mg Tablet] 100 mg PO DAILY #30 tablet Home Medications: Famotidine [Pepcid 20 mg Tablet] 20 mg PO Q12 #60 tablet 01/09/20 Folic Acid [Folvite 1 mg Tablet] 1 mg PO DAILY #30 tablet 01/09/20 Thiamine HCl [Thiamine 100 mg Tablet] 100 mg PO DAILY #30 tablet 01/09/20 History of Present Illiness History of Present Illness: ALINA DORSEY is a 54 year old male with history of alcohol abuse, hepatitis C infection, who presents to the hospital for alcohol detox. He states he wants to turn his life around. He is currently experiencing symptoms of alcohol withdrawal including tremulousness, nausea, diaphoresis. He states he was sent to a detox center and he was turned back because he was too far into his withdrawal. He drinks 24 beers and some liquor every day. Last alcohol consumption was yesterday. Denies fever or chills at this time. Denies any sick exposures. In the ER, his CIWA was reported to be 14. He currently denies any hallucinations. He has had seizure in the past but says it was not from alcohol withdrawal. Denies having any other medical conditions besides hepatitis C and alcohol use. Hospital Course Hospital Course: Patient was admitted to the hospital for acute alcohol withdrawal symptoms. At the time of initial presentation patient was noted to be having very high CIWA scores. Patient had been turned down from [facility] because his withdrawal symptoms were too far progressed. His initial CIWA scores were over 20. He was admitted to the [facility] and started on treatment of alcohol withdrawal with CIWA protocol, standing diazepam as well as as needed Ativan as per CIWA scores. He was also noted to have Wernicke's encephalopathy nystagmus and ataxia and some confusion. He was started on high-dose IV thiamine couple times a day for last few days. His symptoms improved. Notably blood cultures were also obtained on admission which were negative. He never showed any evidence of infection. His initial alcoholic hallucinosis resolved. He has had a prolonged stay for treatment of his withdrawal which is actually taking some time. At this point he is reaching the end of the withdrawal window and has not required any Ativan in almost 24 hours. His benzodiazepines have been weaned off. His CIWA scores seem to be acceptable at this point for discharge. On physical assessment he does not appear to be in withdrawal. Still has tremors but this is likely going to be chronic due to his chronic alcoholism. He has also continued to work with physical therapy. His gait and balance have improved. His past few sessions he has been doing very well with physical therapy. He has also been noted to be walking the hallway walking in his room comfortably without any assistive device. [facility] has declined accepting patient for rehabilitation despite peer to peer discussion. He is ready to be discharged home. He has called his father who he will be staying with. He also informs me that he will be leaving [facility] to enroll in a 10wk alcohol rehabilitation program very shortly. We have given him resources for the potential rehabilitation programs as well. He is cleared for discharge and will be discharged with thiamine and folic acid supplements. Physical Exam Vital Signs: Temp Pulse Resp BP Pulse Ox 98.0 F 90 17 140/82 H 99 01/09/20 08:55 01/09/20 07:27 01/09/20 07:27 01/09/20 07:27 01/09/20 07:27 Intake & Output 01/08/20 01/09/20 01/10/20 06:59 06:59 06:59 Intake Total 300 992 Output Total 7979 964 Balance -1715 42 Weight 91.7 kg 91.9 kg General appearance: PRESENT: no acute distress, cooperative Neck exam: ABSENT: JVD Respiratory exam: PRESENT: unlabored. ABSENT: tachypnea, wheezes Cardiovascular exam: PRESENT: +S1, +S2. ABSENT: tachycardia GI/Abdominal exam: PRESENT: soft. ABSENT: rebound, rigid, tenderness Neurological exam: PRESENT: alert, awake, oriented to person, oriented to place, oriented to time Psychiatric exam: ABSENT: agitated, anxious Focused psych exam: ABSENT: internal stimuli, restlessness Results Laboratory Results: WBC 6.4 10^3/uL (4.0-10.5) 01/06/20 06:07 RBC 4.37 10^6/uL (4.35-5.55) 01/06/20 06:07 Hgb 15.0 g/dL (13.5-17.0) 01/06/20 06:07 Hct 42.6 % (37.9-51.0) 01/06/20 06:07 MCV 97 fl (80-97) 01/06/20 06:07 MCH 34.4 pg (27.0-33.4) H 01/06/20 06:07 MCHC 35.3 g/dL (32.0-36.0) 01/06/20 06:07 RDW 15.4 % (11.5-14.0) H 01/06/20 06:07 Plt Count 224 10^3/uL (150-450) 01/06/20 06:07 Lymph % (Auto) 25.8 % (13-45) 01/06/20 06:07 Leon % (Auto) 14.1 % (3-13) H 01/06/20 06:07 Eos % (Auto) 1.1 % (0-6) 01/06/20 06:07 Baso % (Auto) 0.5 % (0-2) 01/06/20 06:07 Absolute Neuts (auto) 3.7 10^3/uL (1.7-8.2) 01/06/20 06:07 Absolute Lymphs (auto) 1.6 10^3/uL (0.5-4.7) 01/06/20 06:07 Absolute Monos (auto) 0.9 10^3/uL (0.1-1.4) 01/06/20 06:07 Absolute Eos (auto) 0.1 10^3/uL (0.0-0.6) 01/06/20 06:07 Absolute Basos (auto) 0.0 10^3/uL (0.0-0.2) 01/06/20 06:07 Seg Neutrophils % 58.5 % (42-78) 01/06/20 06:07 Sodium 135.8 mmol/L (137-145) L 01/06/20 08:00 Potassium 3.8 mmol/L (3.6-5.0) 01/06/20 08:00 Chloride 105 mmol/L (98-107) 01/06/20 08:00 Carbon Dioxide 24 mmol/L (22-30) 01/06/20 08:00 Anion Gap 7 (5-19) 01/06/20 08:00 BUN 10 mg/dL (7-20) 01/06/20 08:00 Creatinine 0.71 mg/dL (0.52-1.25) 01/06/20 08:00 Est GFR ( Amer) > 60 (>60) 01/06/20 08:00 Est GFR (Non-Af Amer) Cancelled 01/06/20 06:07 Est GFR (MDRD) Non-Af > 60 (>60) 01/06/20 08:00 Glucose 82 mg/dL (75-110) 01/06/20 08:00 POC Glucose 104 mg/dL (70-110) 01/07/20 07:43 Hemoglobin A1c % 5.6 % (4.7-6.0) 01/02/20 06:37 Serum Osmolality 279 mOsm/kg (275-301) 01/01/20 02:45 Calcium 8.9 mg/dL (8.4-10.2) 01/06/20 08:00 Phosphorus 4.0 mg/dL (2.5-4.5) 01/02/20 06:37 Magnesium 2.0 mg/dL (1.6-2.3) 01/03/20 05:18 Total Bilirubin 0.9 mg/dL (0.2-1.3) 01/06/20 08:00 Direct Bilirubin 0.3 mg/dL (0.0-0.4) 01/06/20 08:00 Neonat Total Bilirubin Not Reportable 01/06/20 08:00 Neonat Direct Bilirubin Not Reportable 01/06/20 08:00 Neonat Indirect Bili Not Reportable 01/06/20 08:00 AST 88 U/L (17-59) H 01/06/20 08:00 ALT 150 U/L (<50) H 01/06/20 08:00 Alkaline Phosphatase 103 U/L (38-126) 01/06/20 08:00 Total Protein 6.6 g/dL (6.3-8.2) 01/06/20 08:00 Albumin 3.6 g/dL (3.5-5.0) 01/06/20 08:00 Lipase 297.6 U/L (23-300) 01/01/20 02:45 EGFR Cancelled 01/06/20 06:07 Urine Osmolality 659 mOsm/kg (300-900) 01/02/20 23:51 Urine Sodium 222 mmol/L (30-90) H 01/02/20 23:51 Urine Opiates Screen NEGATIVE 01/02/20 23:51 Urine Methadone Screen NEGATIVE 01/02/20 23:51 Ur Barbiturates Screen NEGATIVE 01/02/20 23:51 Ur Phencyclidine Scrn NEGATIVE 01/02/20 23:51 Ur Amphetamines Screen NEGATIVE 01/02/20 23:51 U Benzodiazepines Scrn UNCONFIRMED POSITIVE 01/02/20 23:51 Urine Cocaine Screen NEGATIVE 01/02/20 23:51 U Marijuana (THC) Screen NEGATIVE 01/02/20 23:51 Serum Alcohol 12 mg/dL (NONE DETECTED) 01/01/20 02:45 Plan Time Spent: Less than 30 Minutes Stroke Is this a Stroke Patient?: No Acute Heart Failure Is this a Heart Failure Patient?: No
[2020-01-09 13:52] VITALS: BP 150/68
== END 2020-01-09 14:07 | disposition home or self-care (01) | DRG 897 ==
LOC: ER 01:17 → EH 05:57 → 3S 10:00
PROVIDERS: ADMIT Internal Medicine; ATTEND Internal Medicine
PROC: HZ2ZZZZ Detoxification Services for Substance Abuse Treatment (ICD-10-PCS; principal; 2020-01-01)
DX: F10.239 Alcohol dependence with withdrawal, unspecified (principal); E51.2 Wernicke's encephalopathy; E87.1 Hypo-osmolality and hyponatremia; Y90.0 Blood alcohol level of less than 20 mg/100 ml; D69.6 Thrombocytopenia, unspecified; F17.210 Nicotine dependence, cigarettes, uncomplicated; R73.9 Hyperglycemia, unspecified; Z86.19 Personal history of other infectious and parasitic diseases; Z79.899 Other long term (current) drug therapy; Z78.1 Physical restraint status
CPT/HCPCS: 36415; 80053; 80307; 82962; 83036; 83690; 83735; 83930; 83935; 84100; 84300; 85025; 85027; 87040; 96374; 99285; J1650; J2060; J2550; J3360; J3411; J3490; J7030; J7050; S0028

== ENCOUNTER 2020-01-12 11:51 | Inpatient (IN) | payer SELFPAY ==
[2020-01-12] MEDS ORDERED: VANCOMYCIN HCL INJ 1000 MG VIAL IV ONE (13:17)
[2020-01-12] MEDS ORDERED: LORAZEPAM INJ 2 MG/1 ML VIAL IV ONE ×4 (13:19→16:16)
[2020-01-12] MEDS ORDERED: ACETAMINOPHEN 650 MG SUPP.RECT PR ONE (13:21)
[2020-01-12] MEDS ORDERED: RINGERS SOLUTION,LACTATED 1,000 ML IV ONE (13:26)
[2020-01-12 13:29] LABS: ABSOLUTE MONOCYTES (AUTO) 1.1 10^3/uL (0.1-1.4); ABSOLUTE NEUT (AUTO) 11.2 10^3/uL (1.7-8.2); BASOPHILS % (AUTO) 0.3 % (0-2); HEMATOCRIT 39.1 % (37.9-51.0); HEMOGLOBIN 13.7 g/dL (13.5-17.0); LYMPHOCYTES % (AUTO) 7.6 % (13-45); MEAN CORPUSCULAR HEMOGLOBIN 34.2 pg (27.0-33.4); MEAN CORPUSCULAR HGB CONC 35.2 g/dL (32.0-36.0); MEAN CORPUSCULAR VOLUME 97 fl (80-97); MONOCYTES % (AUTO) 8.4 % (3-13); PLATELET COUNT 339 10^3/uL (150-450); RED BLOOD COUNT 4.02 10^6/uL (4.35-5.55); RED CELL DISTRIBUTION WIDTH 15.1 % (11.5-14.0); SEGMENTED NEUTROPHILS % (AUTO) 83.7 % (42-78); TOTAL CELLS COUNTED % (AUTO) 100 %; WHITE BLOOD COUNT 13.4 10^3/uL (4.0-10.5)
[2020-01-12 13:31] LABS: INTERNATIONAL RATION (INR) 0.99; PROTHROMBIN TIME 13.3 SEC (11.4-15.4)
[2020-01-12 13:36] LABS: ALBUMIN 4.2 g/dL (3.5-5.0); ALKALINE PHOSPHATASE 122 U/L (38-126); ANION GAP 11 (5-19); ASPARTATE AMINO TRANSFERASE 55 U/L (17-59); BILIRUBIN,DIRECT 0.3 mg/dL (0.0-0.4); BILIRUBIN,TOTAL 0.9 mg/dL (0.2-1.3); BLOOD UREA NITROGEN 4 mg/dL (7-20); CALCIUM 9.2 mg/dL (8.4-10.2); CARBON DIOXIDE 24 mmol/L (22-30); CHLORIDE 94 mmol/L (98-107); CREATINE KINASE 332 U/L (55-170); GLUCOSE 93 mg/dL (75-110); POTASSIUM 3.9 mmol/L (3.6-5.0); TOTAL PROTEIN 7.3 g/dL (6.3-8.2)
--- NOTE | 2020-01-12 13:37 | ER Document Report ---
ED General - General Stated Complaint: ABNORMAL BEHAVIOR Time Seen by Provider: 01/12/20 13:10 - HPI Notes: Chief complaint: Altered mental status History of present illness: 54-year-old male transported here via EMS after call to a room at [facility] per police for an individual with severe altered mental status. No interventions during transport. Patient noted to be hallucinating and uncooperative. Strong odor of alcohol present. Review of records here indicates that this man was admitted to the hospitalist service in [facility] [place] here last week for severe alcohol withdrawal syndrome. He also has a history of hepatitis C. He was discharged 3 days ago he was supposed to be going to a [facility] alcohol detox facility in [facility]. He apparently did not make it there and has resumed drinking. Resuscitation Status: Full Code No current primary care provider. Prescriptions at the time of discharge 3 days ago: Folic Acid [Folvite 1 mg Tablet] 1 mg PO DAILY #30 tablet Famotidine [Pepcid 20 mg Tablet] 20 mg PO Q12 #60 tablet Thiamine HCl [Thiamine 100 mg Tablet] 100 mg PO DAILY #30 tablet I am not able to obtain any meaningful history directly from patient today. Review of history from recent admission shows that the patient reported that he drinks 24 beers and some liquor every day. He has had seizures in the past but says it was not from alcohol withdrawal. Denies having any other medical conditions besides hepatitis C and alcohol use. - Related Data Allergies/Adverse Reactions: No Known Allergies Allergy (Verified 12/13/19 14:53) Past Medical History - General Information source: Emergency Med Personnel, [facility] Records Cannot obtain history due to: Altered mental status - Social History Smoking Status: Current Every Day Smoker Frequency of alcohol use: Heavy Drug Abuse: None Family History: Reviewed & Not Pertinent Neurological Medical History: Reports: Hx Seizures GI Medical History: Reports: Hx Hepatitis - Hepatitis C Musculoskeletal Medical History: Reports Hx Musculoskeletal Trauma Psychiatric Medical History: Reports: Hx Depression Infectious Medical History: Reports: Hx Hepatitis - Hepatitis C Past Surgical History: Reports: Hx Orthopedic Surgery - right knee Review of Systems - Review of Systems -: Yes ROS unobtainable due to patient's medical condition Physical Exam - Vital signs Vitals: Temp Pulse Resp BP Pulse Ox 100.5 F H 127 H 20 145/88 H 100 01/12/20 12:00 01/12/20 12:00 01/12/20 12:00 01/12/20 12:00 01/12/20 12:00 - Notes Notes: GENERAL: Male patient of approximately reported age who is agitated with an acute state of delirium. Strong odor of alcohol present. SKIN: Warm, flushed and diaphoretic. Good turgor no rashes. HEAD: Normocephalic atraumatic. EYES: Eyes open spontaneously. PERRLA. EOMI. Conjunctivae and sclerae clear. EARS: CANALS AND TMS CLEAR. NOSE: CLEAR. MOUTH: Moist mucosa. Good dentition. No stridor or edema. No drooling. NECK: Supple. No masses or thyromegaly. No adenopathy. Carotids 2+ without bruits. No JVD. BACK: Symmetrical without tenderness. CHEST: Respirations unlabored. Breath sounds clear and symmetrical. HEART: Tachycardic regular rhythm. No murmur gallop or rub. ABDOMEN: Soft nontender without masses, organomegaly or rebound. Bowel sounds normally active. No bruits. GENITALIA: Male. EXTREMITIES: No edema. No calf tenderness. Cap refill less than 1.5 seconds. Dorsalis pedis and posterior tibial pulses 3+ and symmetrical. NEUROLOGICAL: Eyes open spontaneously. Onset syllables. Do not follow commands but localizes pain pain. GCS 11. Moving all 4 extremities symmetrically. Slurred speech. Cranial nerves II through XII intact. Moderate generalized tremor. Course - Re-evaluation Re-evalutation: 01/12/20 13:37 CIWA 30 01/12/20 13:44 This is an acute delirium which is probably due to alcohol withdrawal. We going to work him up for sepsis and obtain blood cultures and will get a chest x-ray and urine along with full labs and go to go ahead and empirically give him a dose of vancomycin and Rocephin. Have also ordered a head CT. Patient is getting an IV banana bag as well as other supplemental fluids. He is getting IV Ativan. We will place a Wagner catheter. Dissipate patient will require readmission probably to the [facility] [place] versus ICU. 01/12/20 15:42 Work-up is basically been negative here and his presentation appears most likely consistent with alcohol withdrawal syndrome. Findings have been discussed with the hospitalist on-call Dr. Roth who will admit to [facility] [place] - Vital Signs Vital signs: Temp Pulse Resp BP Pulse Ox 100.5 F H 127 H 20 145/88 H 100 01/12/20 12:00 01/12/20 12:00 01/12/20 12:00 01/12/20 12:00 01/12/20 12:00 - Laboratory Result Diagrams: 01/12/20 12:50 01/12/20 12:50 Laboratory results interpreted by me: 01/12/20 01/12/20 01/12/20 12:50 12:50 13:40 WBC 13.4 H RBC 4.02 L MCH 34.2 H RDW 15.1 H Lymph % (Auto) 7.6 L Absolute Neuts (auto) 11.2 H Seg Neutrophils % 83.7 H VBG pH 7.47 H Sodium 129.3 L Chloride 94 L BUN 4 L ALT 89 H Creatine Kinase 332 H Urine Ketones Urine Blood 01/12/20 13:48 WBC RBC MCH RDW Lymph % (Auto) Absolute Neuts (auto) Seg Neutrophils % VBG pH Sodium Chloride BUN ALT Creatine Kinase Urine Ketones TRACE H Urine Blood SMALL H - EKG Interpretation by Me Additional EKG results interpreted by me: 01/12/20 13:51 Twelve-lead EKG reviewed by me contemporaneously: 1207 hrs. Indication for study: Altered mental status Rhythm: Sinus tachycardia Rate: 120 Intervals: Intervals normal QRS axis: -[address]/T wave changes: None Comparison with prior tracing: Rate has increased since prior tracing of 12/07 Interpretation: Sinus tachycardia Critical Care Note - Critical Care Note Total time excluding time spent on procedures (mins): 35 - Sepsis work-up and evaluation for altered mental status stabilization with IV Ativan and fluids. Discharge - Discharge Clinical Impression: Acute delirium, Alcohol withdrawal, History of hepatitis C Condition: Serious Disposition: ADMITTED INPATIENT Admitting Provider: Dr. Zurita Unit Admitted: [facility] [place]
[2020-01-12 13:52] LABS: VENOUS BLOOD BASE EXCESS 2.1 mmol/L; VENOUS BLOOD HCO3 25.4 mmol/L (20-32); VENOUS BLOOD PCO2 35.5 mmHg (35-63); VENOUS BLOOD PH 7.47 (7.30-7.42)
[2020-01-12] MEDS ORDERED: CEFTRIAXONE INJ 1000 MG VIAL ONE (13:57)
[2020-01-12] MEDS ORDERED: CEFTRIAXONE 1 GM/D5W RTU 1 GM/50 ML RTUPB IV ONE ×2 (14:00→17:00)
[2020-01-12 14:15] LABS: APPEARANCE,URINE CLEAR; BILIRUBIN,URINE NEGATIVE (NEGATIVE); COLOR,URINE COLORLESS; GLUCOSE, URINE NEGATIVE (NEGATIVE); KETONES,URINE TRACE mg/dL (NEGATIVE); PROTEIN,URINE NEGATIVE (NEGATIVE); URINE SPECIFIC GRAVITY 1.001; UROBILINOGEN,URINE NEGATIVE mg/dL (<2.0)
[2020-01-12 14:35] LABS: URINE AMPHETAMINES SCREEN NEGATIVE; URINE BARBITURATES SCREEN NEGATIVE; URINE BENZODIAZEPINES SCREEN NEGATIVE; URINE COCAINE SCREEN NEGATIVE; URINE MARIJUANA (THC) SCREEN NEGATIVE; URINE METHADONE SCREEN NEGATIVE; URINE PHENCYCLIDINE SCREEN NEGATIVE
--- NOTE | 2020-01-12 14:41 | RADIOLOGY REPORT (SQ) ---
EXAM DESCRIPTION: CT HEAD WITHOUT IMAGES COMPLETED DATE/TIME: 01/12/2020 2:30 pm REASON FOR STUDY: AMS COMPARISON: None. TECHNIQUE: Axial images acquired through the brain without intravenous contrast. Images reviewed wi th bone, brain and subdural windows. Additional sagittal and coronal reconstructions were generated. Images stored on PACS. All CT scanners at this facility use dose modulation, iterative reconstruction, and/or weight based d osing when appropriate to reduce radiation dose to as low as reasonably achievable (ALARA). [facility]: Dose Right [facility]: CareDose [facility]: Dose Right [facility]: Teradose 4D [facility]: [employer] RADIATION DOSE: CT Rad equipment meets quality standard of care and radiation dose reduction techniq ues were employed. CTDIvol: 53.2 mGy. DLP: 1097 mGy-cm. LIMITATIONS: None. FINDINGS: There is no acute intracranial hemorrhage, vascular territorial infarct, extra-axial colle ction, mass effect or midline shift. The dixon-white matter differentiation is preserved. The calibe r of the ventricles is concordant with the degree of sulcation. There is no effacement of the cerebr al sulci or basal subarachnoid cisterns. The orbits and globes are intact. The paranasal sinuses and the mastoid air cells are clear. There is no fracture of the calvarium. IMPRESSION: No acute intracranial abnormality. EVIDENCE OF ACUTE STROKE: NO. COMMENT: Quality ID # [id number]: Final reports with documentation of one or more dose reduction techniques (e.g., Automated exposure control, adjustment of the mA and/or kV according to patient size, use of iterative reconstruction technique) TECHNICAL DOCUMENTATION: JOB ID: [id number] 2010 [facility]- All Rights Reserved Reading location - IP/workstation name: [email or web address]-
--- NOTE | 2020-01-12 14:50 | RADIOLOGY REPORT (SQ) ---
EXAM DESCRIPTION: CHEST SINGLE VIEW IMAGES COMPLETED DATE/TIME: 01/12/2020 2:42 pm REASON FOR STUDY: fever COMPARISON: AP view of the chest on 12/31/2019. EXAM PARAMETERS: NUMBER OF VIEWS: One view. TECHNIQUE: An AP view of the chest was obtained. RADIATION DOSE: NA LIMITATIONS: None. FINDINGS: LUNGS AND PLEURA: No consolidation, pleural effusion or pneumothorax. MEDIASTINUM AND HILAR STRUCTURES: No mediastinal or hilar contour abnormality. HEART AND VASCULAR STRUCTURES: The cardiac silhouette and pulmonary vasculature are within normal dash its. BONES: No acute findings. HARDWARE: None in the chest. OTHER: No other finding. IMPRESSION: No acute cardiopulmonary process. TECHNICAL DOCUMENTATION: JOB ID: [id number] 2010 [employer]- All Rights Reserved Reading location - IP/workstation name: [email or web address]
[2020-01-12] MEDS: NORMAL SALINE 1000 ML 1,000 ML with POTASSIUM CHLORIDE 20 MEQ, MAGNESIUM SULFATE 8 MEQ,... IV SCH ×10 (15:27→18:40)
[2020-01-12] MEDS ORDERED: LIDOCAINE 1% INJ-PF (10 MG/ML) 30 ML SDV INJ ONE (16:04)
[2020-01-12] MEDS ORDERED: VANCOMYCIN HCL 0 MG in DEXTROSE 5%-WATER 250 ML IV NR (16:30)
[2020-01-12] MEDS ORDERED: ONDANSETRON HCL INJ/PF 4 MG/2 ML SDV IV PRN (16:30)
[2020-01-12] MEDS ORDERED: ACETAMINOPHEN 650 MG SUPP.RECT PR PRN (16:30)
--- NOTE | 2020-01-12 16:43 | EKG REPORT ---
SEVERITY:- BORDERLINE ECG - SINUS TACHYCARDIA PROBABLE LEFT ATRIAL ABNORMALITY : Confirmed by: Ankita Mercedes 12-Jan-2020 16:42:40
--- NOTE | 2020-01-12 17:22 | PDOC H&P ---
History of Present Illness Admission Date/PCP: 01/12/20 15:54 Patient complains of: Severe confusion History of Present Illness: ALINA DORSEY is a 54 year old male The patient was recently in the hospital between December 31 till January 08. He was treated for alcohol withdrawal, Wernicke's encephalopathy. After discharge he checked into a hotel. He was brought to the emergency department by ambulance. He was found being confused and agitated in the hotel, police and ambulance were called. In the emergency department the patient was confused, noncooperative, agitated. He required repeated doses of 2 mg intravenous lorazepam. He received altogether 8 mg. On arrival the patient had a rectal temperature of 101.7. He was given Tylenol. He was started on intravenous antibiotic, 1 g ceftriaxone, 1 g vancomycin were given. Blood cultures were obtained prior to antibiotic administration. He was started on intravenous fluid and thiamine. He was hemodynamically stable. He maintained good oxygen saturation. When I arrived to see him, he was sedated. He woke up with moderate stimuli. He was hallucinating. He was able to tell his name but he was not oriented neither in time nor in place. He was mentioning snakes and other objects which were not present. Was flushed and sweating. Past Medical History Cardiac Medical History: Reports: None Pulmonary Medical History: Reports: None Neurological Medical History: Reports: Seizures Endocrine Medical History: Reports: None Malignancy Medical History: Reports: None GI Medical History: Reports: Hepatitis - Hepatitis C Skin Medical History: Reports: None Psychiatric Medical History: Reports: Depression Infectious Medical History: Reports: Hepatitis C Past Surgical History Past Surgical History: Reports: Orthopedic Surgery - right knee Social History Smoking Status: Current Every Day Smoker Frequency of Alcohol Use: Heavy Hx Recreational Drug Use: No Family History Family History: Reviewed & Not Pertinent Family History: The patient is unable to provide any additional family history. Parental Family History Reviewed: No - Patient unable to provide any information. Children Family History Reviewed: Unknown Sibling(s) Family History Reviewed.: Unknown Medication/Allergy Home Medications: No Home Medications 01/12/20 Allergies/Adverse Reactions: No Known Allergies Allergy (Verified 12/13/19 14:53) Review of Systems Constitutional: PRESENT: other - Severely confused, flashes, sweating He is unable to answer any question. Cardiovascular: PRESENT: other - No arrhythmia ,stable blood pressure Respiratory: PRESENT: other - No sign of any shortness of breath or respiratory distress Integumentary: PRESENT: other - Superficial abrasions on both lower extremities Psychiatric: PRESENT: hallucinations Physical Exam Vital Signs: Temp Pulse Resp BP Pulse Ox 100.5 F H 127 H 30 H 110/86 H 95 01/12/20 12:00 01/12/20 12:00 01/12/20 16:01 01/12/20 16:01 01/12/20 16:01 Intake & Output 01/11/20 01/12/20 01/13/20 06:59 06:59 06:59 Intake Total 1050 Balance 1050 General appearance: PRESENT: other - Sedated, wakes up with moderate stimuli. Hallucinating, obviously seeing objects. Able to tell only his name. Unable to meaningfully answer any other question. He is talking but it does not make any sense. Head exam: PRESENT: atraumatic Eye exam: PRESENT: EOMI, PERRLA Ear exam: PRESENT: normal external ear exam, TM's normal bilaterally Mouth exam: PRESENT: other - Does not want to open his mouth. Neck exam: PRESENT: full ROM, other - No nuchal rigidity Respiratory exam: PRESENT: clear to auscultation andrew, symmetrical, unlabored Cardiovascular exam: PRESENT: other - Regular rate and rhythm, no murmur Pulses: PRESENT: normal radial pulses, normal femoral pulses Vascular exam: PRESENT: normal capillary refill GI/Abdominal exam: PRESENT: normal bowel sounds, soft, tenderness - Does not appear to be tender Gentrourinary exam: PRESENT: indwelling catheter - It was placed here in the emergency department Extremities exam: PRESENT: other - No deformity Neurological exam: PRESENT: other - Sedated but wakes up with moderate stimuli. Opens his eyes, moves all 4 extremities. He is able to tell his name but unable to meaningfully answer other questions. Skin exam: PRESENT: other - Face is flushed and red. Superficial excoriations and abrasions on both legs. Results Laboratory Results: 01/12/20 12:50 01/12/20 12:50 01/12/20 01/12/20 01/12/20 12:50 12:50 12:50 WBC 13.4 H RBC 4.02 L Hgb 13.7 Hct 39.1 MCV 97 MCH 34.2 H MCHC 35.2 RDW 15.1 H Plt Count 339 Seg Neutrophils % 83.7 H VBG pH VBG pCO2 VBG HCO3 VBG Base Excess Sodium 129.3 L Potassium 3.9 Chloride 94 L Carbon Dioxide 24 Anion Gap 11 BUN 4 L Creatinine 0.55 Est GFR ( Amer) > 60 Glucose 93 Lactic Acid 1.5 Calcium 9.2 Total Bilirubin 0.9 AST 55 Alkaline Phosphatase 122 Ammonia Total Protein 7.3 Albumin 4.2 Urine Color Urine Appearance Urine pH Ur Specific [place] Urine Protein Urine Glucose (UA) Urine Ketones Urine Blood 01/12/20 01/12/20 01/12/20 13:40 13:40 13:48 WBC RBC Hgb Hct MCV MCH MCHC RDW Plt Count Seg Neutrophils % VBG pH 7.47 H VBG pCO2 35.5 VBG HCO3 25.4 VBG Base Excess 2.1 Sodium Potassium Chloride Carbon Dioxide Anion Gap BUN Creatinine Est GFR ( Amer) Glucose Lactic Acid Calcium Total Bilirubin AST Alkaline Phosphatase Ammonia 12.3 Total Protein Albumin Urine Color COLORLESS Urine Appearance CLEAR Urine pH 7.0 Ur Specific [place] 1.001 Urine Protein NEGATIVE Urine Glucose (UA) NEGATIVE Urine Ketones TRACE H Urine Blood SMALL H 01/12/20 12:50 Creatine Kinase 332 H Impressions: Chest X-Ray 01/12/20 13:19 IMPRESSION: No acute cardiopulmonary process. Head CT 01/12/20 13:23 IMPRESSION: No acute intracranial abnormality. EVIDENCE OF ACUTE STROKE: NO. Assessment and Plan - Diagnosis (1) Sepsis Qualifiers: Sepsis type: sepsis due to unspecified organism Sepsis acute organ dysfunction status: with acute organ dysfunction Severe sepsis acute organ dysfunction type: encephalopathy Severe sepsis shock status: without septic shock Qualified Code(s): A41.9 - Sepsis, unspecified organism; R65.20 - Severe sepsis without septic shock; G93.40 - Encephalopathy, unspecified Is this a current diagnosis for this admission?: Yes Plan: The patient is septic with elevated white blood cell count, rectal temperature of 101.7. He is encephalopathic. The source of sepsis is unclear. The patient does not have any clinical sign or radiological sign of respiratory tract infection. Urine is normal. Abdominal examination is benign. Skin and joint examination unremarkable. Emergency department physician attempted a lumbar puncture but it was unsuccessful due to technical difficulty. Blood cultures were obtained. Patient is scheduled to have diagnostic lumbar puncture by radiology, it cannot be done before tomorrow morning. There is suspicion for possible meningitis or encephalitis. CT scan of the head was unremarkable. Ear examination unremarkable. Continue ceftriaxone, increase the dose to 2 g with every 12 hours. Continue intravenous vancomycin, pharmacy is going to dose. Because history of alcoholism he is going to be placed on ampicillin 2 g every 6 hours as well. The patient is hemodynamically stable. Has no arrhythmia. Maintains good oxygen saturation. DVT prophylaxis with compression device, once diagnostic lumbar puncture was completed he can be placed on pharmacological prophylaxis. (2) Acute encephalopathy Is this a current diagnosis for this admission?: Yes Plan: Patient is encephalopathic. Sepsis may be contributing. The possibility that the patient may had a seizure prior to coming to the hospital cannot be excluded. There was no witnessed seizure here in the hospital. Patient was recently discharged from the hospital on the fourth, 3 days ago, alcohol withdrawal seems to be somewhat unlikely but obviously not entirely impossible. He was treated with high-dose intravenous thiamine during previous hospitalization for Wernicke's encephalopathy. At this point I do not feel high-dose intravenous thiamine is necessary. I will continue with 100 mg in travenous thiamine daily. Monitor neurological status. WA protocol. The patient is quite sedated, I do not think regularly scheduled benzodiazepine is required at this point. As needed intravenous lorazepam was prescribed. (3) Alcohol abuse Is this a current diagnosis for this admission?: Yes Plan: Continue intravenous thiamine. (4) Hyponatremia Is this a current diagnosis for this admission?: Yes Plan: Mild chronic hyponatremia without any clinical significance. - Plan Summary Summary: The patient is going to be admitted to intermediate care unit with signs of sepsis and acute encephalopathy. Source of sepsis is unclear, diagnostic lumbar puncture is going to be done in the morning by radiology. Meantime he is going to be treated for possible meningitis with ceftriaxone, vancomycin, ampicillin. Blood cultures pending. He is hemodynamically stable. I am going to keep him n.p.o. for now, I do not think he can safely swallow. He is hemodynamically stable and maintains good oxygen saturation. - Time Time Spent with patient: 35 or more minutes Medications reviewed and adjusted accordingly: Yes Anticipated Discharge Disposition: Home, Self Care Anticipated Discharge Timeframe: 5 to 7 day
[2020-01-12] MEDS ORDERED: AMPICILLIN SOD INJ 2 GM VIAL IV SCH (18:00)
[2020-01-12] MEDS: AMPICILLIN SODIUM 2 GM in NORMAL SALINE 100 ML IV SCH (22:23)
[2020-01-12] MEDS: POTASSI CL 20 MEQ/NS 1L 1,000 ML IV PRN (22:23)
[2020-01-12] MEDS: VANCOMYCIN HCL 1,000 MG in DEXTROSE 5%-WATER 250 ML IV SCH (22:58)
[2020-01-13] MEDS: AMPICILLIN SODIUM 2 GM in NORMAL SALINE 100 ML IV SCH ×4 (02:18→21:56)
[2020-01-13] MEDS: VANCOMYCIN HCL 1,000 MG in DEXTROSE 5%-WATER 250 ML IV SCH ×2 (03:50→12:57)
[2020-01-13] MEDS: POTASSI CL 20 MEQ/NS 1L 1,000 ML IV PRN ×3 (05:43→18:30)
[2020-01-13] MEDS: CEFTRIAXONE 2 GM/D5W RTU 2 GM/50 ML RTUPB IV SCH ×2 (05:43→18:26)
[2020-01-13] MEDS: LORAZEPAM INJ 2 MG/1 ML VIAL IV PRN ×5 (06:44→21:56)
[2020-01-13 07:44] LABS: ABSOLUTE LYMPHOCYTES (AUTO) 1.4 10^3/uL (0.5-4.7); ABSOLUTE MONOCYTES (AUTO) 0.8 10^3/uL (0.1-1.4); ABSOLUTE NEUT (AUTO) 4.3 10^3/uL (1.7-8.2); BASOPHILS % (AUTO) 0.5 % (0-2); EOSINOPHILS % (AUTO) 0.2 % (0-6); HEMOGLOBIN 13.2 g/dL (13.5-17.0); LYMPHOCYTES % (AUTO) 21.8 % (13-45); MEAN CORPUSCULAR HEMOGLOBIN 34.5 pg (27.0-33.4); MEAN CORPUSCULAR HGB CONC 34.8 g/dL (32.0-36.0); MEAN CORPUSCULAR VOLUME 99 fl (80-97); MONOCYTES % (AUTO) 11.8 % (3-13); PLATELET COUNT 295 10^3/uL (150-450); RED BLOOD COUNT 3.83 10^6/uL (4.35-5.55); RED CELL DISTRIBUTION WIDTH 15.8 % (11.5-14.0); SEGMENTED NEUTROPHILS % (AUTO) 65.7 % (42-78); TOTAL CELLS COUNTED % (AUTO) 100 %; WHITE BLOOD COUNT 6.5 10^3/uL (4.0-10.5)
[2020-01-13 07:54] LABS: ALBUMIN 3.4 g/dL (3.5-5.0); ALKALINE PHOSPHATASE 94 U/L (38-126); ASPARTATE AMINO TRANSFERASE 39 U/L (17-59); BILIRUBIN,DIRECT 0.2 mg/dL (0.0-0.4); BILIRUBIN,TOTAL 0.6 mg/dL (0.2-1.3); BLOOD UREA NITROGEN 4 mg/dL (7-20); CALCIUM 8.6 mg/dL (8.4-10.2); CREATINE KINASE 140 U/L (55-170); GLUCOSE 94 mg/dL (75-110); PHOSPHORUS 3.1 mg/dL (2.5-4.5); POTASSIUM 3.8 mmol/L (3.6-5.0); TOTAL PROTEIN 6.2 g/dL (6.3-8.2)
[2020-01-13 07:59] LABS: CARBON DIOXIDE 27 mmol/L (22-30); CHLORIDE 106 mmol/L (98-107)
[2020-01-13 08:04] LABS: ANION GAP 3 (5-19)
--- NOTE | 2020-01-13 11:06 | RADIOLOGY REPORT (SQ) ---
EXAM DESCRIPTION: LUMBAR PUNCTURE IMAGES COMPLETED DATE/TIME: 01/13/2020 10:31 am REASON FOR STUDY: rule out meningitis altered mental status, encephalopathy, fever COMPARISON: None. FLUOROSCOPY TIME: 0.3 minutes of fluoroscopy was used. 3 images saved to PACS. TECHNIQUE: Fluoroscopic guided lumbar puncture. LIMITATIONS: None. PROCEDURE: After written consent and assessment were obtained, the patient was brought into the fluo roscopy room and placed prone on the table. The patient's lower back was prepped in a sterile fashio n and an entry site was selected under live fluoroscopic guidance. The entry site was anesthetized wi th 1% lidocaine. A 20 gauge needle was advanced through the skin and into the thecal sac at the level of L2-L3. After approximately 12 ml was drained, the needle was removed and a sterile bandage was pl aced of the site. Specimens were sent to the lab for testing. A fluoroscopic spot image was saved t o PACS confirming level access. FINDINGS: Clear CSF IMPRESSION: Lumbar puncture under fluoroscopy. No immediate complication. COMMENT: Patient medication list reviewed: Yes- Quality ID# [id number]:Eligible professional attests to doc umenting in the medical record they obtained, updated, or reviewed the patient's current medications. . Quality ID 145: Final reports for procedures using fluoroscopy that document radiation exposure winnie kina, or exposure time and number of fluorographic images (if radiation exposure indices are not avail able) TECHNICAL DOCUMENTATION: JOB ID: [id number] 2010 [employer]- All Rights Reserved Reading location - IP/workstation name: [email or web address] [id number]
[2020-01-13 11:13] LABS: CSF TUBE NUMBER 3
[2020-01-13 11:14] LABS: APPEARANCE ALL TUBES CLEAR; COLOR ALL TUBES COLORLESS; CSF TOTAL VOLUME 11.7 CC; RED BLOOD CELL,CSF 1 /uL (0-10); VOLUME TUBE 1 2.3 CC; VOLUME TUBE 2 2.3 CC; VOLUME TUBE 3 2.8 CC; VOLUME TUBE 4 4.3 CC
[2020-01-13 11:15] LABS: WHITE BLOOD CELL,CSF 2 /uL (0-5)
[2020-01-13 11:18] LABS: GLUCOSE,CSF 64 mg/dL (40-70); PROTEIN,CSF 78 mg/dL (12-60)
[2020-01-13 12:15] LABS: VANCOMYCIN,TROUGH 8.3 ug/mL (5.0-20.0)
[2020-01-13] MEDS ORDERED: THIAMINE HCL 100 MG in NORMAL SALINE 50 ML IV SCH (18:00)
--- NOTE | 2020-01-13 20:54 | PDOC PROGRESS REPORT ---
Subjective Date:: 01/13/20 Subjective:: He was seen and examined at bedside. He is alert awake and talking and he is or iented to time place and person. He denies any chest pain or shortness of breath, no headache no nausea and vomiting, no hallucination. Reason For Visit: SEPSIS,ACUTE ENCEPHALOPATHY Physical Exam Vital Signs: Temp Pulse Resp BP Pulse Ox 98.0 F 101 H 18 131/79 H 97 01/13/20 08:56 01/13/20 14:00 01/13/20 08:10 01/13/20 08:10 01/13/20 08:10 Intake & Output 01/12/20 01/13/20 01/14/20 06:59 06:59 06:59 Intake Total 3823 1743 Output Total 1725 900 Balance 2098 843 Weight 94 kg General appearance: PRESENT: no acute distress, cooperative Head exam: PRESENT: atraumatic, normocephalic Eye exam: PRESENT: EOMI, PERRLA Mouth exam: PRESENT: moist Neck exam: PRESENT: full ROM Respiratory exam: PRESENT: clear to auscultation andrew, symmetrical, unlabored Cardiovascular exam: PRESENT: RRR, +S1, +S2 GI/Abdominal exam: PRESENT: normal bowel sounds, soft. ABSENT: rebound, tenderness Extremities exam: PRESENT: full ROM Musculoskeletal exam: PRESENT: full ROM Neurological exam: PRESENT: alert, awake, oriented to person, oriented to place, oriented to time, oriented to situation Psychiatric exam: PRESENT: normal mood Skin exam: PRESENT: normal color Results Laboratory Results: 01/13/20 07:26 01/13/20 07:26 01/13/20 01/13/20 01/13/20 07:26 07:26 10:10 WBC 6.5 RBC 3.83 L Hgb 13.2 L Hct 38.0 MCV 99 H MCH 34.5 H MCHC 34.8 RDW 15.8 H Plt Count 295 Seg Neutrophils % 65.7 Sodium 135.5 L Potassium 3.8 Chloride 106 Carbon Dioxide 27 Anion Gap 3 L BUN 4 L Creatinine 0.62 Est GFR ( Amer) > 60 Glucose 94 Calcium 8.6 Phosphorus 3.1 Magnesium 2.2 Total Bilirubin 0.6 AST 39 Alkaline Phosphatase 94 Total Protein 6.2 L Albumin 3.4 L Fluid Tube Number 3 CSF Volume 11.7 CSF Appearance CLEAR CSF Color COLORLESS CSF WBC 2 CSF RBC 1 CSF Glucose CSF Total Protein 01/13/20 10:10 WBC RBC Hgb Hct MCV MCH MCHC RDW Plt Count Seg Neutrophils % Sodium Potassium Chloride Carbon Dioxide Anion Gap BUN Creatinine Est GFR ( Amer) Glucose Calcium Phosphorus Magnesium Total Bilirubin AST Alkaline Phosphatase Total Protein Albumin Fluid Tube Number CSF Volume CSF Appearance CSF Color CSF WBC CSF RBC CSF Glucose 64 CSF Total Protein 78 H 01/12/20 01/12/20 01/12/20 12:50 19:25 19:25 Creatine Kinase 332 H 203 H Troponin I 0.052 01/13/20 01/13/20 01/13/20 01:27 01:27 07:26 Creatine Kinase 170 140 Troponin I 0.036 01/13/20 07:26 Creatine Kinase Troponin I 0.024 Impressions: Chest X-Ray 01/12/20 13:19 IMPRESSION: No acute cardiopulmonary process. Head CT 01/12/20 13:23 IMPRESSION: No acute intracranial abnormality. EVIDENCE OF ACUTE STROKE: NO. Lumbar Puncture 01/13/20 00:00 IMPRESSION: Lumbar puncture under fluoroscopy. No immediate complication. Assessment and Plan - Diagnosis (1) Sepsis Qualifiers: Sepsis type: sepsis due to unspecified organism Sepsis acute organ dysfunction status: with acute organ dysfunction Severe sepsis acute organ dysfunction type: encephalopathy Severe sepsis shock status: without septic shock Qualified Code(s): A41.9 - Sepsis, unspecified organism; R65.20 - Severe sepsis without septic shock; G93.40 - Encephalopathy, unspecified Is this a current diagnosis for this admission?: Yes Plan: The patient is septic with elevated white blood cell count, rectal temperature of 101.7. He is encephalopathic -LP negative on Gram stain awaiting final results on culture -This is less likely for now but will continue broad-spectrum antibiotics until cultures are negative (2) Acute metabolic encephalopathy Is this a current diagnosis for this admission?: Yes Plan: Resolved This is more likely secondary to alcohol intoxication Continue to monitor (3) Alcohol abuse Is this a current diagnosis for this admission?: Yes Plan: Continue intravenous thiamine. -CIWA score and as needed Ativan as needed (4) History of hepatitis C Is this a current diagnosis for this admission?: Yes Plan: Not on treatment (5) Hyponatremia Is this a current diagnosis for this admission?: Yes Plan: Mild chronic hyponatremia without any clinical significance. (6) Wernickes encephalopathy Is this a current diagnosis for this admission?: Yes Plan: Continue thiamine - Time Time Spent with patient: 25-34 minutes Medications reviewed and adjusted accordingly: Yes Anticipated Discharge Disposition: Home, Self Care Anticipated Discharge Timeframe: TBD
[2020-01-13] MEDS: VANCOMYCIN HCL 1,500 MG in DEXTROSE 5%-WATER 250 ML IV SCH (21:55)
[2020-01-14] MEDS: LORAZEPAM INJ 2 MG/1 ML VIAL IV PRN ×6 (00:07→23:46)
[2020-01-14] MEDS: AMPICILLIN SODIUM 2 GM in NORMAL SALINE 100 ML IV SCH ×2 (02:09→08:57)
[2020-01-14] MEDS: VANCOMYCIN HCL 1,500 MG in DEXTROSE 5%-WATER 250 ML IV SCH ×2 (03:01→11:37)
[2020-01-14] MEDS: CEFTRIAXONE 2 GM/D5W RTU 2 GM/50 ML RTUPB IV SCH ×2 (05:33→17:21)
[2020-01-14] MEDS: POTASSI CL 20 MEQ/NS 1L 1,000 ML IV PRN ×3 (05:45→23:55)
--- NOTE | 2020-01-14 15:16 | PDOC PROGRESS REPORT ---
Subjective Date:: 01/14/20 Subjective:: He was seen and examined at bedside. He is alert awake and talking and he is or iented to time place and person. He denies any chest pain or shortness of breath, no headache no nausea and vomiting, no hallucination. D3 hospital stay 01/14/20 The patient was seen and examined at bedside. He is much more awake, alert and oriented today. He is complaining of withdrawal symptoms headache, nausea, tremors and anxiety. CSF gram stain and culture has been negative so far. I will monitor him today as he is still showing signs of withdrawal. Reason For Visit: SEPSIS,ACUTE ENCEPHALOPATHY Physical Exam Vital Signs: Temp Pulse Resp BP Pulse Ox 98.9 F 87 18 127/66 H 100 01/14/20 10:57 01/14/20 10:57 01/14/20 10:57 01/14/20 10:57 01/14/20 10:57 Intake & Output 01/13/20 01/14/20 01/15/20 06:59 06:59 06:59 Intake Total 3823 3944 360 Output Total 1725 3000 700 Balance 2098 944 -340 Weight 94 kg 97.9 kg General appearance: PRESENT: no acute distress, cooperative Head exam: PRESENT: atraumatic, normocephalic Eye exam: PRESENT: EOMI, PERRLA Mouth exam: PRESENT: moist Neck exam: PRESENT: full ROM Respiratory exam: PRESENT: clear to auscultation andrew, symmetrical, unlabored Cardiovascular exam: PRESENT: RRR, +S1, +S2 Pulses: PRESENT: +2 pedal pulses bilateral GI/Abdominal exam: PRESENT: normal bowel sounds, soft. ABSENT: tenderness Extremities exam: PRESENT: full ROM Musculoskeletal exam: PRESENT: full ROM Neurological exam: PRESENT: alert, awake, oriented to person, oriented to place, oriented to time, oriented to situation Psychiatric exam: PRESENT: normal mood Skin exam: PRESENT: normal color Results Laboratory Results: 01/13/20 07:26 01/13/20 07:26 01/13/20 10:10 Cerebral Spinal Fluid - Tube 2 (Csf) Gram Stain - Final 01/12/20 01/12/20 01/12/20 12:50 19:25 19:25 Creatine Kinase 332 H 203 H Troponin I 0.052 01/13/20 01/13/20 01/13/20 01:27 01:27 07:26 Creatine Kinase 170 140 Troponin I 0.036 01/13/20 07:26 Creatine Kinase Troponin I 0.024 Impressions: Chest X-Ray 01/12/20 13:19 IMPRESSION: No acute cardiopulmonary process. Head CT 01/12/20 13:23 IMPRESSION: No acute intracranial abnormality. EVIDENCE OF ACUTE STROKE: NO. Lumbar Puncture 01/13/20 00:00 IMPRESSION: Lumbar puncture under fluoroscopy. No immediate complication. Assessment and Plan - Diagnosis (1) Sepsis Qualifiers: Sepsis type: sepsis due to unspecified organism Sepsis acute organ dysfunction status: with acute organ dysfunction Severe sepsis acute organ dysfunction type: encephalopathy Severe sepsis shock status: without septic shock Qualified Code(s): A41.9 - Sepsis, unspecified organism; R65.20 - Severe sepsis without septic shock; G93.40 - Encephalopathy, unspecified Is this a current diagnosis for this admission?: Yes Plan: - resolved -LP negative on Gram stain and negative x 1 day on cultures - i have stopped ampicillin and vanc. Continue ceftri for now -sepsis less likely given clear CSF, CXR and UA (2) Acute metabolic encephalopathy Is this a current diagnosis for this admission?: Yes Plan: Resolved This is more likely secondary to alcohol intoxication Continue to monitor (3) Alcohol abuse Is this a current diagnosis for this admission?: Yes Plan: Continue intravenous thiamine. -CIWA score and as needed Ativan as needed (4) History of hepatitis C Is this a current diagnosis for this admission?: Yes Plan: Not on treatment (5) Hyponatremia Is this a current diagnosis for this admission?: Yes Plan: Mild chronic hyponatremia without any clinical significance. (6) Wernickes encephalopathy Is this a current diagnosis for this admission?: Yes Plan: Continue thiamine - Time Time Spent with patient: 25-34 minutes Medications reviewed and adjusted accordingly: Yes Anticipated Discharge Disposition: Home, Self Care Anticipated Discharge Timeframe: TBD
[2020-01-14] MEDS ORDERED: ACETAMINOPHEN 325 MG TABLET PO PRN (19:08)
[2020-01-14] MEDS: ACETAMINOPHEN 325 MG TABLET PO PRN (20:56)
[2020-01-15] MEDS: ACETAMINOPHEN 325 MG TABLET PO PRN (02:04)
[2020-01-15] MEDS: LORAZEPAM INJ 2 MG/1 ML VIAL IV PRN ×7 (04:54→23:14)
[2020-01-15] MEDS: CEFTRIAXONE 2 GM/D5W RTU 2 GM/50 ML RTUPB IV SCH ×2 (05:59→17:04)
[2020-01-15] MEDS: POTASSI CL 20 MEQ/NS 1L 1,000 ML IV PRN ×3 (07:25→23:14)
[2020-01-15] MEDS: THIAMINE HCL 100 MG TABLET PO SCH (10:14)
--- NOTE | 2020-01-15 21:53 | PDOC PROGRESS REPORT ---
Subjective Date:: 01/15/20 Subjective:: He was seen and examined at bedside. He is alert awake and talking and he is or iented to time place and person. He denies any chest pain or shortness of breath, no headache no nausea and vomiting, no hallucination. D3 hospital stay 01/14/20 The patient was seen and examined at bedside. He is much more awake, alert and oriented today. He is complaining of withdrawal symptoms headache, nausea, tremors and anxiety. CSF gram stain and culture has been negative so far. I will monitor him today as he is still showing signs of withdrawal. D4 hospital stay 01/15/20 patient was seen and examined at bedside. Still complaining of withdrawal symptoms with shakiness headache and anxiety does not want to go home today. Although her mental status changes has completely resolved. We will keep him for today and discharge him tomorrow. Reason For Visit: SEPSIS,ACUTE ENCEPHALOPATHY Physical Exam Vital Signs: Temp Pulse Resp BP Pulse Ox 98.0 F 91 18 134/76 H 94 01/15/20 19:41 01/15/20 19:41 01/15/20 19:41 01/15/20 19:41 01/15/20 19:41 Intake & Output 01/14/20 01/15/20 01/16/20 06:59 06:59 06:59 Intake Total 3944 3060 2780 Output Total 3000 3100 1550 Balance 944 -40 1230 Weight 97.9 kg 94.8 kg General appearance: PRESENT: no acute distress, cooperative Head exam: PRESENT: atraumatic, normocephalic Eye exam: PRESENT: EOMI, PERRLA Mouth exam: PRESENT: moist Respiratory exam: PRESENT: clear to auscultation andrew, symmetrical, unlabored Cardiovascular exam: PRESENT: RRR, +S1, +S2 GI/Abdominal exam: PRESENT: normal bowel sounds, soft. ABSENT: rebound, tenderness Extremities exam: PRESENT: full ROM Musculoskeletal exam: PRESENT: full ROM Neurological exam: PRESENT: alert, awake, oriented to person, oriented to place, oriented to time, oriented to situation Psychiatric exam: PRESENT: normal mood Skin exam: PRESENT: normal color Results Laboratory Results: 01/13/20 07:26 01/13/20 07:26 01/13/20 10:10 Cerebral Spinal Fluid - Tube 2 (Csf) Gram Stain - Final 01/12/20 01/12/20 01/12/20 12:50 19:25 19:25 Creatine Kinase 332 H 203 H Troponin I 0.052 01/13/20 01/13/20 01/13/20 01:27 01:27 07:26 Creatine Kinase 170 140 Troponin I 0.036 01/13/20 07:26 Creatine Kinase Troponin I 0.024 Impressions: Chest X-Ray 01/12/20 13:19 IMPRESSION: No acute cardiopulmonary process. Head CT 01/12/20 13:23 IMPRESSION: No acute intracranial abnormality. EVIDENCE OF ACUTE STROKE: NO. Lumbar Puncture 01/13/20 00:00 IMPRESSION: Lumbar puncture under fluoroscopy. No immediate complication. Assessment and Plan - Diagnosis (1) Alcohol withdrawal Qualifiers: Complication of substance-induced condition: with delirium Qualified Code(s): F10.231 - Alcohol dependence with withdrawal delirium Is this a current diagnosis for this admission?: Yes Plan: -As needed Ativan for withdrawal symptoms - continue CIWA score (2) Sepsis Qualifiers: Sepsis type: sepsis due to unspecified organism Sepsis acute organ dysfunction status: with acute organ dysfunction Severe sepsis acute organ dysfunction type: encephalopathy Severe sepsis shock status: without septic shock Qualified Code(s): A41.9 - Sepsis, unspecified organism; R65.20 - Severe sepsis without septic shock; G93.40 - Encephalopathy, unspecified Is this a current diagnosis for this admission?: Yes Plan: - resolved -LP negative on Gram stain and negative x 1 day on cultures - i have stopped ampicillin and vanc. Continue ceftri for now -sepsis less likely given clear CSF, CXR and UA (3) Acute metabolic encephalopathy Is this a current diagnosis for this admission?: Yes Plan: Resolved This is more likely secondary to alcohol intoxication Continue to monitor (4) Alcohol abuse Is this a current diagnosis for this admission?: Yes Plan: Continue intravenous thiamine. -CIWA score and as needed Ativan as needed (5) History of hepatitis C Is this a current diagnosis for this admission?: Yes Plan: Not on treatment (6) Hyponatremia Is this a current diagnosis for this admission?: Yes Plan: Mild chronic hyponatremia without any clinical significance. (7) Wernickes encephalopathy Is this a current diagnosis for this admission?: Yes Plan: Continue thiamine - Time Time Spent with patient: 25-34 minutes Medications reviewed and adjusted accordingly: Yes Anticipated Discharge Disposition: Home, Self Care Anticipated Discharge Timeframe: tbd
[2020-01-16] MEDS: LORAZEPAM INJ 2 MG/1 ML VIAL IV PRN ×3 (03:04→10:21)
[2020-01-16] MEDS: POTASSI CL 20 MEQ/NS 1L 1,000 ML IV PRN (06:03)
[2020-01-16] MEDS: THIAMINE HCL 100 MG TABLET PO SCH (09:03)
[2020-01-16] MEDS ORDERED: INFLUENZA QUAD (6MOS+) 2020-21 VAC 0.5 ML SYR IM ONE ×2 (11:27→12:02)
[2020-01-16 12:18] VITALS: BP 138/68
--- NOTE | 2020-01-17 06:59 | PDOC DISCHARGE SUMMARY ---
Impression - Admit/DC Date/PCP Admission Date/Primary Care Provider: 01/12/20 15:54 Discharge Date: 01/16/20 - Discharge Diagnosis (1) Alcohol withdrawal Is this a current diagnosis for this admission?: Yes (2) Sepsis Is this a current diagnosis for this admission?: Yes (3) Acute metabolic encephalopathy Is this a current diagnosis for this admission?: Yes (4) Alcohol abuse Is this a current diagnosis for this admission?: Yes (5) History of hepatitis C Is this a current diagnosis for this admission?: Yes (6) Hyponatremia Is this a current diagnosis for this admission?: Yes (7) Wernickes encephalopathy Is this a current diagnosis for this admission?: Yes - Assessment Summary: (1) Alcohol withdrawal Qualifiers: Complication of substance-induced condition: with delirium Qualified Code(s): F10.231 - Alcohol dependence with withdrawal delirium Is this a current diagnosis for this admission?: Yes Plan: -As needed Ativan for withdrawal symptoms - continue CIWA score (2) Sepsis Qualifiers: Sepsis type: sepsis due to unspecified organism Sepsis acute organ dysfunction status: with acute organ dysfunction Severe sepsis acute organ dysfunction type: encephalopathy Severe sepsis shock status: without septic shock Qualified Code(s): A41.9 - Sepsis, unspecified organism; R65.20 - Severe sepsis without septic shock; G93.40 - Encephalopathy, unspecified Is this a current diagnosis for this admission?: Yes Plan: - resolved -LP negative on Gram stain and negative x 1 day on cultures - i have stopped ampicillin and vanc. Continue ceftri for now -sepsis less likely given clear CSF, CXR and UA (3) Acute metabolic encephalopathy Is this a current diagnosis for this admission?: Yes Plan: Resolved This is more likely secondary to alcohol intoxication Continue to monitor (4) Alcohol abuse Is this a current diagnosis for this admission?: Yes Plan: Continue intravenous thiamine. -CIWA score and as needed Ativan as needed (5) History of hepatitis C Is this a current diagnosis for this admission?: Yes Plan: Not on treatment (6) Hyponatremia Is this a current diagnosis for this admission?: Yes Plan: Mild chronic hyponatremia without any clinical significance. (7) Wernickes encephalopathy Is this a current diagnosis for this admission?: Yes Plan: Continue thiamine - Additional Information Discharge Diet: As Tolerated Discharge Activity: Activity As Tolerated Referrals: [facility] [Outside] - 01/16/20 11:19 am ([facility] WILL CONTACT THE PATIENT AND SCHEDULE A FOLLOW UP APPT) Prescriptions: Multivitamin with Iron [Multivitamins with Iron] 1 each PO DAILY 30 Days #30 tablet Thiamine HCl [Thiamine 100 mg Tablet] 100 mg PO DAILY 30 Days #30 tablet Home Medications: Multivitamin with Iron [Multivitamins with Iron] 1 each PO DAILY 30 Days #30 tablet 01/16/20 Thiamine HCl [Thiamine 100 mg Tablet] 100 mg PO DAILY 30 Days #30 tablet 01/16/20 History of Present Illiness History of Present Illness: ALINA DORSEY is a 54 year old male, he patient was recently in the hospital between December 31 till January 08. He was treated for alcohol withdrawal, Wernicke's encephalopathy. After discharge he checked into a hotel. He was brought to the emergency department by ambulance. He was found being confused and agitated in the hotel, police and ambulance were called. In the emergency department the patient was confused, noncooperative, agitated. He required repeated doses of 2 mg intravenous lorazepam. He received altogether 8 mg. On arrival the patient had a rectal temperature of 101.7. He was given Tylenol. He was started on intravenous antibiotic, 1 g ceftriaxone, 1 g vancomycin were given. Blood cultures were obtained prior to antibiotic administration. He was started on intravenous fluid and thiamine. He was hemodynamically stable. He maintained good oxygen saturation. When I arrived to see him, he was sedated. He woke up with moderate stimuli. He was hallucinating. He was able to tell his name but he was not oriented neither in time nor in place. He was mentioning snakes and other objects which were not present. Was flushed and sweating. Hospital Course Hospital Course: He was seen and examined at bedside. He is alert awake and talking and he is oriented to time place and person. He denies any chest pain or shortness of breath, no headache no nausea and vomiting, no hallucination. D3 hospital stay 01/14/20 The patient was seen and examined at bedside. He is much more awake, alert and oriented today. He is complaining of withdrawal symptoms headache, nausea, tremors and anxiety. CSF gram stain and culture has been negative so far. I will monitor him today as he is still showing signs of withdrawal. D4 hospital stay 01/15/20 patient was seen and examined at bedside. Still complaining of withdrawal symptoms with shakiness headache and anxiety does not want to go home today. Although her mental status changes has completely resolved. We will keep him for today and discharge him tomorrow. Physical Exam Vital Signs: Temp Pulse Resp BP Pulse Ox 98.3 F 94 17 138/68 H 95 01/16/20 11:23 01/16/20 11:47 01/16/20 11:47 01/16/20 11:47 01/16/20 11:47 Intake & Output 01/15/20 01/16/20 01/17/20 06:59 06:59 06:59 Intake Total 3060 5040 927 Output Total 3100 5250 800 Balance -40 -210 127 Weight 94.8 kg 93.1 kg General appearance: PRESENT: no acute distress, cooperative Head exam: PRESENT: atraumatic, normocephalic Eye exam: PRESENT: EOMI, PERRLA Mouth exam: PRESENT: moist Neck exam: PRESENT: full ROM Respiratory exam: PRESENT: clear to auscultation andrew, symmetrical, unlabored Cardiovascular exam: PRESENT: RRR, +S1, +S2 GI/Abdominal exam: PRESENT: normal bowel sounds. ABSENT: rebound, tenderness Extremities exam: PRESENT: full ROM Musculoskeletal exam: PRESENT: full ROM Neurological exam: PRESENT: alert, awake, oriented to person, oriented to place, oriented to time, oriented to situation Skin exam: PRESENT: normal color Results Laboratory Results: WBC 6.5 10^3/uL (4.0-10.5) 01/13/20 07:26 RBC 3.83 10^6/uL (4.35-5.55) L 01/13/20 07:26 Hgb 13.2 g/dL (13.5-17.0) L 01/13/20 07:26 Hct 38.0 % (37.9-51.0) 01/13/20 07:26 MCV 99 fl (80-97) H 01/13/20 07:26 MCH 34.5 pg (27.0-33.4) H 01/13/20 07:26 MCHC 34.8 g/dL (32.0-36.0) 01/13/20 07:26 RDW 15.8 % (11.5-14.0) H 01/13/20 07:26 Plt Count 295 10^3/uL (150-450) 01/13/20 07:26 Lymph % (Auto) 21.8 % (13-45) 01/13/20 07:26 [place] % (Auto) 11.8 % (3-13) 01/13/20 07:26 Eos % (Auto) 0.2 % (0-6) 01/13/20 07:26 Baso % (Auto) 0.5 % (0-2) 01/13/20 07:26 Absolute Neuts (auto) 4.3 10^3/uL (1.7-8.2) 01/13/20 07:26 Absolute Lymphs (auto) 1.4 10^3/uL (0.5-4.7) 01/13/20 07:26 Absolute Monos (auto) 0.8 10^3/uL (0.1-1.4) 01/13/20 07:26 Absolute Eos (auto) 0.0 10^3/uL (0.0-0.6) 01/13/20 07:26 Absolute Basos (auto) 0.0 10^3/uL (0.0-0.2) 01/13/20 07:26 Seg Neutrophils % 65.7 % (42-78) 01/13/20 07:26 PT 13.3 SEC (11.4-15.4) 01/12/20 12:50 INR 0.99 01/12/20 12:50 VBG pH 7.47 (7.30-7.42) H 01/12/20 13:40 VBG pCO2 35.5 mmHg (35-63) 01/12/20 13:40 VBG HCO3 25.4 mmol/L (20-32) 01/12/20 13:40 VBG Base Excess 2.1 mmol/L 01/12/20 13:40 Sodium 135.5 mmol/L (137-145) L 01/13/20 07:26 Potassium 3.8 mmol/L (3.6-5.0) 01/13/20 07:26 Chloride 106 mmol/L (98-107) 01/13/20 07:26 Carbon Dioxide 27 mmol/L (22-30) 01/13/20 07:26 Anion Gap 3 (5-19) L 01/13/20 07:26 BUN 4 mg/dL (7-20) L 01/13/20 07:26 Creatinine 0.62 mg/dL (0.52-1.25) 01/13/20 07:26 Est GFR ( Amer) > 60 (>60) 01/13/20 07:26 Est GFR (MDRD) Non-Af > 60 (>60) 01/13/20 07:26 Glucose 94 mg/dL (75-110) 01/13/20 07:26 Lactic Acid 0.8 mmol/L (0.7-2.1) 01/12/20 19:25 Calcium 8.6 mg/dL (8.4-10.2) 01/13/20 07:26 Phosphorus 3.1 mg/dL (2.5-4.5) 01/13/20 07:26 Magnesium 2.2 mg/dL (1.6-2.3) 01/13/20 07:26 Total Bilirubin 0.6 mg/dL (0.2-1.3) 01/13/20 07:26 Direct Bilirubin 0.2 mg/dL (0.0-0.4) 01/13/20 07:26 Neonat Total Bilirubin Not Reportable 01/13/20 07:26 Neonat Direct Bilirubin Not Reportable 01/13/20 07:26 Neonat Indirect Bili Not Reportable 01/13/20 07:26 AST 39 U/L (17-59) 01/13/20 07:26 ALT 67 U/L (<50) H 01/13/20 07:26 Alkaline Phosphatase 94 U/L (38-126) 01/13/20 07:26 Ammonia 12.3 umol/L (9-33) 01/12/20 13:40 Creatine Kinase 140 U/L (55-170) 01/13/20 07:26 Troponin I 0.024 ng/mL 01/13/20 07:26 Total Protein 6.2 g/dL (6.3-8.2) L 01/13/20 07:26 Albumin 3.4 g/dL (3.5-5.0) L 01/13/20 07:26 Urine Color COLORLESS 01/12/20 13:48 Urine Appearance CLEAR 01/12/20 13:48 Urine pH 7.0 (5.0-9.0) 01/12/20 13:48 Ur Specific [place] 1.001 01/12/20 13:48 Urine Protein NEGATIVE mg/dL (NEGATIVE) 01/12/20 13:48 Urine Glucose (UA) NEGATIVE mg/dL (NEGATIVE) 01/12/20 13:48 Urine Ketones TRACE mg/dL (NEGATIVE) H 01/12/20 13:48 Urine Blood SMALL (NEGATIVE) H 01/12/20 13:48 Urine Nitrite (Reflex) NEGATIVE (NEGATIVE) 01/12/20 13:48 Urine Bilirubin NEGATIVE (NEGATIVE) 01/12/20 13:48 Urine Urobilinogen NEGATIVE mg/dL (<2.0) 01/12/20 13:48 Leukocyte Esterase Rfl NEGATIVE (NEGATIVE) 01/12/20 13:48 Urine Ascorbic Acid NEGATIVE (NEGATIVE) 01/12/20 13:48 Fluid Tube Number 3 01/13/20 10:10 CSF Volume 11.7 CC 01/13/20 10:10 CSF Appearance CLEAR 01/13/20 10:10 CSF Color COLORLESS 01/13/20 10:10 CSF WBC 2 /uL (0-5) 01/13/20 10:10 CSF RBC 1 /uL (0-10) 01/13/20 10:10 CSF Glucose 64 mg/dL (40-70) 01/13/20 10:10 CSF Total Protein 78 mg/dL (12-60) H 01/13/20 10:10 Time Trough Drawn 1140 01/13/20 11:40 Vancomycin Trough 8.3 ug/mL (5.0-20.0) 01/13/20 11:40 Urine Opiates Screen NEGATIVE 01/12/20 13:48 Urine Methadone Screen NEGATIVE 01/12/20 13:48 Ur Barbiturates Screen NEGATIVE 01/12/20 13:48 Ur Phencyclidine Scrn NEGATIVE 01/12/20 13:48 Ur Amphetamines Screen NEGATIVE 01/12/20 13:48 U Benzodiazepines Scrn NEGATIVE 01/12/20 13:48 Urine Cocaine Screen NEGATIVE 01/12/20 13:48 U Marijuana (THC) Screen NEGATIVE 01/12/20 13:48 Serum Alcohol < 10 mg/dL (NONE DETECTED) 01/12/20 12:50 01/12/20 01/13/20 01/13/20 19:25 01:27 07:26 Troponin I 0.052 0.036 0.024 Impressions: Chest X-Ray 01/12/20 13:19 IMPRESSION: No acute cardiopulmonary process. Head CT 01/12/20 13:23 IMPRESSION: No acute intracranial abnormality. EVIDENCE OF ACUTE STROKE: NO. Lumbar Puncture 01/13/20 00:00 IMPRESSION: Lumbar puncture under fluoroscopy. No immediate complication. Plan Plan of Treatment: - alcohol cessation counseling done - ff.up with PCP Stroke Is this a Stroke Patient?: No Acute Heart Failure Is this a Heart Failure Patient?: No
== END 2020-01-16 12:32 | disposition home or self-care (01) | DRG 897 ==
LOC: ER 11:51 → EH 15:54 → 5 18:23
PROVIDERS: ADMIT Internal Medicine; ATTEND Internal Medicine
PROC: HZ2ZZZZ Detoxification Services for Substance Abuse Treatment (ICD-10-PCS; principal; 2020-01-12)
PROC: 009U3ZX Drainage of Spinal Canal, Percutaneous Approach, Diagnostic (ICD-10-PCS; 2020-01-13)
PROC: B01BZZZ Fluoroscopy of Spinal Cord (ICD-10-PCS; 2020-01-13)
PROC: 3E02340 Introduction of Influenza Vaccine into Muscle, Percutaneous Approach (ICD-10-PCS; 2020-01-16)
DX: F10.231 Alcohol dependence with withdrawal delirium (principal); E87.1 Hypo-osmolality and hyponatremia; E51.2 Wernicke's encephalopathy; F32.9 Major depressive disorder, single episode, unspecified; F17.210 Nicotine dependence, cigarettes, uncomplicated; Z23 Encounter for immunization; Z86.19 Personal history of other infectious and parasitic diseases; R50.9 Fever, unspecified
CPT/HCPCS: 36415; 51702; 62328; 70450; 71045; 80053; 80202; 80307; 81001; 82140; 82550; 82803; 82945; 83605; 83735; 84100; 84157; 84484; 85025; 85610; 87040; 87070; 87205; 89050; 90471; 90686; 93005; 93010; 96365; 96375; 99285; G0008; J0290; J0696; J2060; J3370; J3411; J3475; J3480; J3490; J7030; J7050; J7060; J7120